=== PATIENT | male | born 1950 | race Caucasian/White ===

== ENCOUNTER 2018-08-13 00:05 | Inpatient (IN) | payer OTHER, MEDICARE ==
[~2018-08-13] VITALS: Ht 175.3 cm; Wt 100.1 kg
[~2018-08-13 00:05] MED LIST: ASPI-999 PO; ATOR40TA70 PO; CARV6.252 PO; INSU100I10 SQ; INSU100I23 SQ; INSU100V SQ; INSU100V6 SQ; ISOS30TA3 PO; LISI10TA2 PO; METF-399 PO; MULT-1029 PO; NITR0.4T39 SL; ROSU20TA PO
[2018-08-13] MEDS ORDERED: VANCOMYCIN INJECTION 1,000 MG in NS (IVPB) 250 ML IV ONE (22:15)
[2018-08-13] MEDS ORDERED: PIPERACILLIN SODIUM/TAZOBACTAM 4.5 GM in NS (IVPB) 100 ML IV SCH (22:15)
[2018-08-13] MEDS ORDERED: inSUlin ASPART (NovoLOG) 1 UNIT/0.01 ML (CHARGE PER UNIT) SC SCH (22:15)
--- NOTE | 2018-08-13 23:35 | NUR ---
Received report from ESTRELLA Rea at [facility] at [id number]. LÓPEZ RODRÍGUEZ admitted to room 417 , with an admitting diagnosis of cellulitis and diabetes mellitus , [facility] accompanied by staff and SO. LÓPEZ RODRÍGUEZ introduced to surroundings, call light, bed controls, phone, TV, temperature control, lights, meal times, smoking policy, visitor policy, side rail policy, bathrooms and showers. Patient Rights given to patient in the handbook. LÓPEZ RODRÍGUEZ verbalizes understanding that [facility] is not responsible for the loss or damage to any personal effects or valuables that are kept in the patients possession during their hospitalization. LÓPEZ RODRÍGUEZ verbalizes understanding of Interdisciplinary Patient Education. Patient and/or family were informed about the Rapid Response Team and its purpose.
[2018-08-13 23:40] VITALS: BP 144/74
[2018-08-14] VITALS: BP 144/74
[2018-08-14] MEDS: NS IV 1000 ML 1,000 ML IV SCH ×2 (01:15→09:35)
[2018-08-14] MEDS: ENOXAPARIN 40 MG/0.4 ML (LOVENOX) SYR SC SCH ×2 (01:16→21:50)
[2018-08-14 01:38] LABS: BASOPHILS % (AUTO) 0 % (0-10); EOSINOPHILS # (AUTO) 0.9 10^3/uL (0.0-0.3); EOSINOPHILS % (AUTO) 10 % (0-10); HEMATOCRIT 43 % (40-54); HEMOGLOBIN 15.8 G/DL (13.3-17.7); LYMPHOCYTES % (AUTO) 34 % (12-44); MEAN CORPUSCULAR HEMOGLOBIN 30 PG (25-34); MEAN CORPUSCULAR HGB CONC 36 G/DL (32-36); MEAN CORPUSCULAR VOLUME 82 FL (80-99); MEAN PLATELET VOLUME 9.2 FL (7.4-10.4); MONOCYTES # (AUTO) 0.8 X 10^3 (0.0-1.0); MONOCYTES % (AUTO) 9 % (0-12); NEUTROPHILS # (AUTO) 4.2 X 10^3 (1.8-7.8); NEUTROPHILS % (AUTO) 47 % (42-75); PLATELET COUNT 239 10^3/uL (130-400); RED BLOOD COUNT 5.28 10^6/uL (4.35-5.85); RED CELL DISTRIBUTION WIDTH 16.8 % (10.0-14.5); WHITE BLOOD COUNT 8.9 10^3/uL (4.3-11.0)
[2018-08-14 01:58] LABS: ALANINE AMINOTRANSFERASE 21 U/L (0-55); ALBUMIN 2.1 GM/DL (3.2-4.5); ALKALINE PHOSPHATASE 71 U/L (40-136); BILIRUBIN,TOTAL 0.4 MG/DL (0.1-1.0); BUN/CREATININE RATIO 17; CALCIUM 8.2 MG/DL (8.5-10.1); CARBON DIOXIDE 23 MMOL/L (21-32); CHLORIDE 105 MMOL/L (98-107); CREATININE SERUM 0.96 MG/DL (0.60-1.30); GFR ESTIMATED > 60; GLUCOSE 202 MG/DL (70-105); POTASSIUM 3.8 MMOL/L (3.6-5.0); SODIUM 137 MMOL/L (135-145); TOTAL PROTEIN 4.2 GM/DL (6.4-8.2)
[2018-08-14 04:48] VITALS: BP 129/60
[2018-08-14] MEDS: inSUlin ASPART (NovoLOG) 1 UNIT/0.01 ML (CHARGE PER UNIT) SC SCH ×4 (06:30→21:58)
[2018-08-14 08:00] VITALS: BP 124/66
[2018-08-14] MEDS: PIPERACILLIN SODIUM/TAZOBACTAM 4.5 GM in NS (IVPB) 100 ML IV SCH ×2 (09:36→18:16)
[2018-08-14] MEDS ORDERED: INSU100V SQ (11:24)
[2018-08-14] MEDS ORDERED: FURO20TA4 PO (11:25)
[2018-08-14] MEDS ORDERED: METF-399 PO (11:25)
[2018-08-14] MEDS ORDERED: POTA-51 PO (11:26)
[2018-08-14] MEDS ORDERED: PANT40TA2 PO (11:26)
--- NOTE | 2018-08-14 11:28 | NUR ---
SPOKE TO PATIENT HE GETS HIS MEDICATION FILLED BY [facility]. WHEN OVER MEDICATIONS WE HAD ON HIS CHART AND HE STATED IF HE TOOK THEM AND HOW HE TOOK THEM.
[2018-08-14 12:00] VITALS: BP 126/64
[2018-08-14] MEDS: VANCOMYCIN 1500 MG/NS 500 ML IVPB IV SCH ×4 (12:11→21:51)
[2018-08-14] MEDS ORDERED: NITROGLYCERIN 0.4 MG SL TABS BTL 25'S SL SCH (12:30)
--- NOTE | 2018-08-14 12:39 | History & Physical-Hospitalist ---
History of Present Illness HPI/Chief Complaint Is a 67-year-old white male transferred to the hospitalist service from the emergency room at [facility]. The concern by the nurse practitioner was that the patient had developed a cellulitis in his right lower extremity. He reports that over the past several weeks he has had increasing problems with edema both legs and the arms. He also states that at times he has trouble bending his knees. He attributes this to swelling as well. He has a past history of coronary artery bypass some 15 years ago. He has previously been treated in [place]. 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 He had an echocardiogram about 2 months ago which is not available to me. After prompting him it would sound that he had a normal ejection fraction but diastolic dysfunction. He has been taking Lasix 20 mg by mouth for several weeks. This has not been clearly helpful. He works in a sedentary fashion mostly at a desk. He states that his legs swell more as the day goes on. Date Seen 08/14/18 Time Seen by a Provider: 12:37 Attending Physician Edgar Alexander MD PCP No,Local Physician Referring Physician Date of Admission Aug 14, 2018 at 00:35 Home Medications & Allergies Home Medications Reviewed patient Home Medication Reconciliation performed by pharmacy medication reconciliations measurement technician and/or nursing. Patients Allergies have been reviewed. Allergies Allergies Coded Allergies No Known Drug Allergies (Unverified03/17/16) Past Wjuomgw-Agqmds-Xkcvdo Hx Past Med/Social Hx: Reviewed Nursing Past Med/Soc Hx Patient Social History Alcohol Use: Occasionally Uses Alcohol Beverage of Choice: Beer Recreational Drug Use: No Smoking Status: Former Smoker Former Smoker, Quit: Aug 14, 2004 Type Used: Cigarettes Physical Abuse Screen: No Sexual Abuse: No Recent Foreign Travel: No Contact w/other who traveled: No Recent Hopitalizations: No Recent Infectious Disease Expo: No Immunizations Up To Date Date of Pneumonia Vaccine: May 17, 2018 Date of Influenza Vaccine: May 17, 2018 Seasonal Allergies Seasonal Allergies: No Past Medical History Surgeries: CABG Currently Using CPAP: No Currently Using BIPAP: No Cardiac: Coronary Artery Disease, Heart Attack, High Cholesterol, Hypertension Reproductive: No Sexually Transmitted Disease: No HIV/AIDS: No Gastrointestinal: Gastroesophageal Reflux Endocrine: Diabetes, Insulin dep HEENT: Cataract Loss of Vision: Bilateral Hearing Impairment: Hard of Hearing History of Blood Disorders: No Adverse Reaction to Blood Hankins: No Family History Diabetes mellitus 19 MOTHER FH: breast cancer 19 MOTHER FH: cancer 19 FATHER 19 MOTHER FH: heart disease 19 FATHER 19 MOTHER No Pertinent Family Hx Review of Systems Constitutional: see HPI EENTM: no symptoms reported Respiratory: dyspnea on exertion Cardiovascular: other (extensive past history with previous bypass surgery.) Gastrointestinal: no symptoms reported Genitourinary: no symptoms reported Musculoskeletal: no symptoms reported Skin: change in color (both lower extremities below the knees) Psychiatric/Neurological: No Symptoms Reported Physical Exam Physical Exam Vital Signs Vital Signs - First Documented 08/13/18 23:40 Temp 98.0 Pulse 79 Resp 20 B/P (MAP) 144/74 (97) Pulse Ox 98 O2 Delivery Room Air Capillary Refill : Height, Weight, BMI Height: 5'9.00" Weight: 220lbs. 11.0oz. 100.921092pi; 32.6 BMI Method:Unable to Obtain General Appearance: No Apparent Distress, WD/WN Eyes: Bilateral Eye Normal Inspection HEENT: Normal ENT Inspection Neck: Normal Inspection Respiratory: Chest Non Tender, Lungs Clear, Normal Breath Sounds, No Accessory Muscle Use, No Respiratory Distress Cardiovascular: Regular Rate, Rhythm, No Edema, No Gallop, No JVD, No Murmur, Normal Peripheral Pulses Gastrointestinal: Normal Bowel Sounds, No Organomegaly, No Pulsatile Mass, Non Tender, Soft, Other (obese) Back: Normal Inspection Comments The lower extremities show 2-3+ pitting edema pretibially. There is mild discoloration bilaterally and palpable papillary keratoses consistent with venous stasis dermatitis. No evidence of cellulitis is noted. There is palpable edema to the upper thighs. In addition there is edema in the upper extremities with dorsal edema and pitting of the hands left greater than right. Results Results/Procedures Labs Laboratory Tests 08/14/18 01:17 08/15/18 10:20 Patient resulted labs reviewed. Assessment/Plan Admission Diagnosis Anasarca, consider undiagnosed congestive heart failure. 2.previous history coronary artery disease post-bypass surgery. 3.hypertension. Admission Status: Inpatient Order (span 2 midnights) Reason for Inpatient Admission: Edema requiring longer than 48 hours Assessment and Plan Cardiology consultation. Discontinuation of IV antibiotics. Echocardiogram Clinical Quality Measures DVT/VTE Risk/Contraindication: Risk Factor Score Per Nursin RFS Level Per Nursing on Admit: 4+=Very High EDGAR ALEXANDER MD Aug 14, 2018 12:39
[2018-08-14] MEDS ORDERED: FUROSEMIDE 40 MG/4 ML INJ (LASIX) IVP ONE (12:45)
[2018-08-14 16:00] VITALS: BP 153/70
[2018-08-14] MEDS ORDERED: FUROSEMIDE 40 MG/4 ML INJ (LASIX) ONE (16:16)
[2018-08-14] MEDS: metFORMIN 500 MG (GLUCOPHAGE) TAB PO SCH (18:15)
[2018-08-14] MEDS: inSUlin ASPART (NovoLOG) 1 UNIT/0.01 ML (CHARGE PER UNIT) SQ SCH (18:16)
--- NOTE | 2018-08-14 18:42 | NUR ---
Home dose of Novolog refused by patient stating that he is watching his carbohydrates during this admission and his blood sugar is much lower than it normally is at home, Per previous SSI protocol he has not been receiving insulin. Will discuss insulin orders with provider.
[2018-08-14 20:00] VITALS: BP 135/61
[2018-08-14] MEDS: inSUlin DETERMIR 1 UNIT/0.01 ML (LEVEMIR) CHARGE PER UNIT SQ SCH (21:50)
[2018-08-14] MEDS: KCL 20 MEQ TAB (K-DUR) PO SCH (21:50)
[2018-08-14] MEDS: CARVEDILOL 6.25 MG (COREG) TAB PO SCH (21:51)
[2018-08-14] MEDS ORDERED: VANCOMYCIN INJECTION 0.1 MG in NS (IVPB) 250 ML IV SCH (22:00)
[2018-08-15] VITALS: BP 114/61
[2018-08-15] MEDS: PIPERACILLIN SODIUM/TAZOBACTAM 4.5 GM in NS (IVPB) 100 ML IV SCH ×2 (02:24→10:48)
[2018-08-15 04:00] VITALS: BP 114/53
[2018-08-15] MEDS: inSUlin ASPART (NovoLOG) 1 UNIT/0.01 ML (CHARGE PER UNIT) SQ SCH ×3 (05:07→16:12)
[2018-08-15] MEDS: inSUlin ASPART (NovoLOG) 1 UNIT/0.01 ML (CHARGE PER UNIT) SC SCH ×4 (06:19→21:10)
[2018-08-15] MEDS: metFORMIN 500 MG (GLUCOPHAGE) TAB PO SCH ×2 (06:30→16:09)
[2018-08-15 08:00] VITALS: BP 138/68
[2018-08-15] MEDS: ASPIRIN 81 MG CHEW (CHILDREN'S ASA) PO SCH (08:46)
[2018-08-15] MEDS: KCL 20 MEQ TAB (K-DUR) PO SCH ×2 (08:46→21:09)
[2018-08-15] MEDS: VANCOMYCIN 1500 MG/NS 500 ML IVPB IV SCH ×4 (08:46→21:09)
[2018-08-15] MEDS: lisINopril 10 MG (PRINIVIL) TABLET PO SCH (08:46)
[2018-08-15] MEDS: CARVEDILOL 6.25 MG (COREG) TAB PO SCH ×2 (08:46→21:23)
[2018-08-15] MEDS: PANTOPRAZOLE 40 MG (PROTONIX) TAB PO SCH (08:46)
[2018-08-15] MEDS: ATORVASTATIN 40 MG (LIPITOR) TABLET PO SCH (08:46)
--- NOTE | 2018-08-15 10:03 | Consultation-Cardiology ---
HPI-Cardiology Cardiology Consultation Date of Consultation 08/15/18 Date of Admission Time Seen by Provider: 10:00 Indication: shortness of breath HPI 67 years old gentleman with history of coronary artery disease, CABG, hypertension and hyperlipidemia. Has been having increasing shortness of breath with exertion, increasing peripheral edema which has been worsening to the point that he went to the emergency room for evaluation, he was transferred from [place]. Upper my evaluation he was laying down in bed comfortably, having significant edema. Concerned about his increasing shortness of breath that has been occurring over the past month. Denied any palpitation. Denied any syncope or near syncopal episodes, denied any chest pain. Home Medications & Allergies Allergies: Coded Allergies: No Known Drug Allergies (Unverified , 03/17/16) Home Medication List Reviewed: Yes FBM-Csctuo-Epmhnf Hx Patient Social History Marital Status: Employed/Student: employed Alcohol Use: Occasionally Uses Recreational Drug Use: No Smoking Status: Former Smoker Type Used: Cigarettes Recent Foreign Travel: No Recent Infectious Disease Expo: No Recent Hopitalizations: No Physical Abuse Screen: No Sexual Abuse: No Immunizations Up To Date Date of Pneumonia Vaccine: May 17, 2018 Date of Influenza Vaccine: May 17, 2018 Past Medical History past medical history as described below Family Medical History Significant Family History: No Pertinent Family Hx Family History: Diabetes mellitus 19 MOTHER FH: breast cancer 19 MOTHER FH: cancer 19 FATHER 19 MOTHER FH: heart disease 19 FATHER 19 MOTHER Review of Systems Constitutional: see HPI, malaise EENTM: see HPI, no symptoms reported Respiratory: see HPI; No cough; dyspnea on exertion; No hemoptysis, No orthopnea, No phlegm, No short of breath, No stridor, No wheezing, No other Cardiovascular: see HPI; No chest pain; edema; No Hx of Intervention, No palpitations, No syncope, No vascular heart diseas, No other Gastrointestinal: no symptoms reported, see HPI Genitourinary: no symptoms reported, see HPI Musculoskeletal: no symptoms reported, see HPI Skin: no symptoms reported, see HPI Psychiatric/Neurological: No Symptoms Reported, See HPI Reviewed Test Results Reviewed Test Results Lab Laboratory Tests Test 08/14/18 11:03 08/14/18 12:41 08/14/18 16:05 08/14/18 20:22 Range/Units Glucometer 144 H 134 H 167 H 200 H 70-110 MG/DL Test 08/15/18 06:13 Range/Units Glucometer 77 70-110 MG/DL Physical Exam Vital Signs Vital Signs - First Documented 08/13/18 23:40 Temp 98.0 Pulse 79 Resp 20 B/P (MAP) 144/74 (97) Pulse Ox 98 O2 Delivery Room Air Capillary Refill : Height, Weight, BMI Height: 5'9.00" Weight: 220lbs. 11.0oz. 100.572323uh; 32.6 BMI Method:Unable to Obtain General Appearance: No Apparent Distress, WD/WN Eyes: Bilateral Eye Normal Inspection, Bilateral Eye PERRL, Bilateral Eye EOMI HEENT: PERRL/EOMI, TMs Normal, Normal ENT Inspection, Pharynx Normal Neck: Full Range of Motion, Normal Inspection, Non Tender, Supple, Carotid Bruit, JVD Respiratory: Chest Non Tender, Lungs Clear, Normal Breath Sounds, No Accessory Muscle Use, No Respiratory Distress Cardiovascular: Regular Rate, Rhythm, No Edema, No Gallop, No Murmur, Normal Peripheral Pulses, JVD Gastrointestinal: Normal Bowel Sounds, No Organomegaly, No Pulsatile Mass, Non Tender, Soft Back: Normal Inspection, No CVA Tenderness, No Vertebral Tenderness Extremity: Normal Capillary Refill, Normal Inspection, Normal Range of Motion, Non Tender, No Calf Tenderness, Pedal Edema (+2-3 pedal edema) Neurologic/Psychiatric: Alert, Oriented x3, No Motor/Sensory Deficits, Normal Mood/Affect Skin: Normal Color, Warm/Dry Lymphatic: No Adenopathy A/P-Cardiology Admission Diagnosis Shortness of breath Peripheral edema Coronary artery disease Peripheral arterial disease Hypertension Hyperlipidemia Assessment/Plan Shortness of breath, worsening recently. Extensive cardiac history, planning to evaluate echocardiogram. Started on Lasix IV Peripheral edema involving the lower and upper extremities with jugular venous distention. Started on Lasix 40 mg IV twice a day and we will monitor tolerance and response. Coronary artery disease, history of CABG 3 done in 2003, cardiac catheterization done in March 2016 showed patent AMBROSIO to LAD, vein graft to the ramus intermedius which has diffuse disease distally, patent vein graft to the right coronary artery which has diffuse disease distally, the first diagonal branch has severe disease at its ostium which is a small artery not amendable to intervention, the proper circumflex artery and first obtuse marginal branch has diffuse disease and receiving collaterals from the right coronary artery, small artery not amendable to intervention. Has been followed with a program specialist in [place], currently moving back to our area. Next Peripheral arterial disease, history of iliac stent. No recent cardiac workup or vascular workup. Currently asymptomatic. Hypertension, restarted home medication monitor blood pressure Hyperlipidemia, monitor lipids. Diabetes mellitus, followed and managed by primary care physician Clinical Quality Measures DVT/VTE Risk/Contraindication: Risk Factor Score Per Nursin RFS Level Per Nursing on Admit: 4+=Very High ELMIRA KIM MD Aug 15, 2018 10:03
--- NOTE | 2018-08-15 10:12 | Diagnostic Imaging Report ---
PROCEDURE: US Venous Lower Ext Jaxon. TECHNIQUE: Multiple real-time grayscale images were obtained over the lower extremities in various projections, bilaterally. Additional duplex Doppler and color Doppler images were also obtained. DATE: August 15, 2018. INDICATION: 67-year-old male, bilateral lower extremity swelling. COMPARISON: None. FINDINGS: The left common femoral vein, left superficial femoral vein, and left popliteal vein are all compressible with normal flow and response to augmentation. Visualized portions of the left greater saphenous vein and deep femoral vein are patent. The left posterior tibial vein and peroneal veins are patent. The right common femoral vein, superficial femoral vein, and popliteal vein are compressible with normal flow and response to augmentation. The visualized portions of the right greater saphenous vein and deep femoral vein are patent. The right posterior tibial and peroneal veins are patent. IMPRESSION: 1. Negative for right or left lower extremity deep venous thrombosis. Dictated by: Dictated on workstation # [id number]
[2018-08-15] MEDS: FUROSEMIDE 40 MG/4 ML INJ (LASIX) IVP SCH ×2 (10:48→16:09)
[2018-08-15 10:50] LABS: BUN/CREATININE RATIO 15; CALCIUM 7.6 MG/DL (8.5-10.1); CARBON DIOXIDE 23 MMOL/L (21-32); CHLORIDE 109 MMOL/L (98-107); CREATININE SERUM 1.08 MG/DL (0.60-1.30); GFR ESTIMATED > 60; GLUCOSE 110 MG/DL (70-105); MAGNESIUM 1.4 MG/DL (1.8-2.4); POTASSIUM 3.9 MMOL/L (3.6-5.0); SODIUM 140 MMOL/L (135-145)
[2018-08-15 12:00] VITALS: BP 133/62
[2018-08-15] MEDS: MAGNESIUM 1 GM/100 ML IVPB 100 ML IV SCH ×3 (12:18→14:36)
--- NOTE | 2018-08-15 13:01 | Diagnostic Imaging Report ---
INDICATION: Anasarca. Cellulitis of the right foot. FINDINGS: Portable chest shows normal heart size and vascularity. The lungs are clear. There are changes of prior median sternotomy. There is no acute bony abnormality. IMPRESSION: No acute abnormality is seen. Dictated by: Dictated on workstation # [id number]
--- NOTE | 2018-08-15 14:59 | Progress Note-Hospitalist ---
Progress Note Progress Notes/Assess & Plan Date Seen 08/15/18 Time Seen by Provider: 14:56 Assessment & Plan The patient reports that after Lasix he has urinated robustly. Dr. Morgan has filled in some blanks relative to the cardiac function. An echocardiogram has been performed and shows diastolic dysfunction. In addition his estimated pulmonary artery pressure is 35 mmHg. Physical exam: He is alert and oriented. Lungs are clear to auscultation. CV is regular without murmur. The extremities show resolution of the dorsal edema in the hands. The ankles now are rated at 1+ edema with minimum pitting. In addition the skin up the legs does not feel as thick and doughy as it did yesterday. Impression: Diastolic dysfunction. 2.hypertension. 3.generalized edema. Plan: Continue aggressive diuresis. Focused Exam Lactate Level 08/14/18 01:17: Lactic Acid Level 1.27 ALONZO ALEXANDER MD Aug 15, 2018 14:59
[2018-08-15 16:10] VITALS: BP 125/58
[2018-08-15 19:25] VITALS: BP 108/57
[2018-08-15] MEDS: inSUlin DETERMIR 1 UNIT/0.01 ML (LEVEMIR) CHARGE PER UNIT SQ SCH (21:09)
[2018-08-15] MEDS: ENOXAPARIN 40 MG/0.4 ML (LOVENOX) SYR SC SCH (23:47)
[2018-08-16] VITALS: BP 106/51
[2018-08-16] MEDS ORDERED: DEXTROSE 50% 50 ML (IMS) SYR ONE (02:24)
[2018-08-16 04:00] VITALS: BP 100/57
[2018-08-16] MEDS: inSUlin ASPART (NovoLOG) 1 UNIT/0.01 ML (CHARGE PER UNIT) SQ SCH ×3 (06:58→17:09)
[2018-08-16] MEDS: metFORMIN 500 MG (GLUCOPHAGE) TAB PO SCH (06:58)
[2018-08-16] MEDS: inSUlin ASPART (NovoLOG) 1 UNIT/0.01 ML (CHARGE PER UNIT) SC SCH ×4 (06:58→21:33)
[2018-08-16] MEDS: FUROSEMIDE 40 MG/4 ML INJ (LASIX) IVP SCH (06:58)
[2018-08-16 08:00] VITALS: BP 136/72
[2018-08-16] MEDS ORDERED: TROUGH ORDER-PHARMACY XX NR (08:00)
--- NOTE | 2018-08-16 08:53 | Cardiology Progress Note ---
Subjective Date Seen by Provider: Aug 16, 2018 Time Seen by Provider: 08:51 Subjective/Events-last exam Patient is in bed, continues to complain of dyspnea with exertion. Denies any chest pain. Focused Exam Lactate Level 08/14/18 01:17: Lactic Acid Level 1.27 Objective-Cardiology Exam Last Set of Vital Signs Vital Signs 08/16/18 04:00 Temp 97.4 Pulse 63 Resp 18 B/P (MAP) 100/57 (71) Pulse Ox 93 O2 Delivery Room Air Capillary Refill : I&O Intake and Output 08/16/18 00:00 Intake Total 3340 ml Output Total 2750 ml Balance 590 ml Intake Oral 1910 ml IV Total 1430 ml Output Urine Total 2750 ml # Bowel Movements 2 General: Alert, Oriented X3, Cooperative HEENT: Atraumatic, PERRLA Neck: Supple, No JVD, No Thyromegaly Lungs: Clear to Auscultation, Normal Air Movement Heart: Regular Rate, Normal S1, Normal S2, No Murmurs Abdomen: Soft, No Tenderness Extremities: Normal Pulses, Other (+2-3 edema BLE) Skin: No Rashes, No Breakdown Neuro: Normal Speech Psych/Mental Status: Mental Status NL, Mood NL Results Lab Laboratory Tests 08/15/18 10:20 A/P-Cardiology Admission Diagnosis Shortness of breath Peripheral edema Coronary artery disease Peripheral arterial disease Hypertension Hyperlipidemia Assessment/Plan Shortness of breath, worsening recently. Extensive cardiac history, Started on Lasix IV. 2D Echo revealed EF 55-60%. Peripheral edema involving the lower and upper extremities with jugular venous distention. Started on Lasix 40 mg IV twice a day and we will monitor tolerance and response. Coronary artery disease, history of CABG 3 done in 2003, cardiac catheterization done in March 2016 showed patent AMBROSIO to LAD, vein graft to the ramus intermedius which has diffuse disease distally, patent vein graft to the right coronary artery which has diffuse disease distally, the first diagonal branch has severe disease at its ostium which is a small artery not amendable to intervention, the proper circumflex artery and first obtuse marginal branch has diffuse disease and receiving collaterals from the right coronary artery, small artery not amendable to intervention. Has been followed with a pot feeder in [place], currently moving back to our area. Discussed the possibility of stress test in the near future. Peripheral arterial disease, history of iliac stent. No recent cardiac workup or vascular workup. Currently asymptomatic. Hypertension, continue to monitor blood pressure. Hyperlipidemia, monitor lipids. Diabetes mellitus, followed and managed by primary care physician Clinical Quality Measures DVT/VTE Risk/Contraindication: Risk Factor Score Per Nursin RFS Level Per Nursing on Admit: 4+=Very High HAJA MAYNARD Aug 16, 2018 08:53
[2018-08-16 09:01] LABS: HEMOGLOBIN 15.2 G/DL (13.3-17.7); MEAN PLATELET VOLUME 9.2 FL (7.4-10.4); RED BLOOD COUNT 5.03 10^6/uL (4.35-5.85); RED CELL DISTRIBUTION WIDTH 17.3 % (10.0-14.5); WHITE BLOOD COUNT 9.3 10^3/uL (4.3-11.0)
[2018-08-16] MEDS: CARVEDILOL 6.25 MG (COREG) TAB PO SCH ×2 (09:15→20:14)
[2018-08-16] MEDS: lisINopril 10 MG (PRINIVIL) TABLET PO SCH (09:15)
[2018-08-16] MEDS: PANTOPRAZOLE 40 MG (PROTONIX) TAB PO SCH (09:15)
[2018-08-16] MEDS: KCL 20 MEQ TAB (K-DUR) PO SCH ×2 (09:16→20:14)
[2018-08-16] MEDS: ATORVASTATIN 40 MG (LIPITOR) TABLET PO SCH (09:16)
[2018-08-16] MEDS: ASPIRIN 81 MG CHEW (CHILDREN'S ASA) PO SCH ×2 (09:16→09:46)
[2018-08-16 09:27] LABS: ALBUMIN 2.1 GM/DL (3.2-4.5); BILIRUBIN,TOTAL 0.3 MG/DL (0.1-1.0); CALCIUM 8.3 MG/DL (8.5-10.1); CREATININE SERUM 2.08 MG/DL (0.60-1.30); POTASSIUM 4.4 MMOL/L (3.6-5.0); TOTAL PROTEIN 4.2 GM/DL (6.4-8.2)
--- NOTE | 2018-08-16 09:30 | Cardiology Progress Note ---
Subjective Date Seen by Provider: Aug 16, 2018 Time Seen by Provider: 09:28 Subjective/Events-last exam patient is laying down in bed, still having edema, denied any chest pain, mild dyspnea Review of Systems General: No Chills, No Night Sweats, No Fatigue, No Malaise, No Appetite, No Other HEENT: No Head Aches, No Visual Changes, No Eye Pain, No Ear Pain, No Dysphasia , No Sinus Congestion, No Post Nasal Drip, No Sore Throat, No Other Pulmonary: Dyspnea; No Cough, No Pleuritic Chest Pain, No Other Cardiovascular: Edema; No: Chest Pain, Palpitations, Orthopnea, Paroxysmal Noc. Dyspnea, Lt Headedness, Other Focused Exam Lactate Level 08/14/18 01:17: Lactic Acid Level 1.27 Objective-Cardiology Exam Last Set of Vital Signs Vital Signs 08/16/18 04:00 Temp 97.4 Pulse 63 Resp 18 B/P (MAP) 100/57 (71) Pulse Ox 93 O2 Delivery Room Air Capillary Refill : I&O Intake and Output 08/16/18 00:00 Intake Total 3340 ml Output Total 2750 ml Balance 590 ml Intake Oral 1910 ml IV Total 1430 ml Output Urine Total 2750 ml # Bowel Movements 2 General: Alert, Oriented X3, Cooperative HEENT: Atraumatic, PERRLA Neck: Supple, No JVD, No Thyromegaly Lungs: Clear to Auscultation, Normal Air Movement Heart: Regular Rate, Normal S1, Normal S2, No Murmurs Abdomen: Soft, No Tenderness Extremities: Normal Pulses, Other (+2-3 edema BLE) Skin: No Rashes, No Breakdown Neuro: Normal Speech Psych/Mental Status: Mental Status NL, Mood NL Results Lab Laboratory Tests 08/15/18 10:20 08/16/18 08:35 A/P-Cardiology Admission Diagnosis Shortness of breath Peripheral edema Coronary artery disease Peripheral arterial disease Hypertension Hyperlipidemia Assessment/Plan Shortness of breath, worsening recently. Extensive cardiac history, Started on Lasix IV. 2D Echo revealed EF 55-60%, diastolic dysfunction, continue to monitor Acute renal failure, worsening in renal function secondary to aggressive diuresis, I would hold the evening dose of Lasix for now and monitor tolerance and response Peripheral edema involving the lower and upper extremities with jugular venous distention. Started on Lasix 40 mg IV twice a day, hold the evening dose of Lasix due to worsening renal function Coronary artery disease, history of CABG 3 done in 2003, cardiac catheterization done in March 2016 showed patent AMBROSIO to LAD, vein graft to the ramus intermedius which has diffuse disease distally, patent vein graft to the right coronary artery which has diffuse disease distally, the first diagonal branch has severe disease at its ostium which is a small artery not amendable to intervention, the proper circumflex artery and first obtuse marginal branch has diffuse disease and receiving collaterals from the right coronary artery, small artery not amendable to intervention. Has been followed with a siebel solution architect in [place], currently moving back to our area. Discussed the possibility of stress test in the near future. Peripheral arterial disease, history of iliac stent. No recent cardiac workup or vascular workup. Currently asymptomatic. Hypertension, continue to monitor blood pressure. Hyperlipidemia, monitor lipids. Diabetes mellitus, followed and managed by primary care physician Clinical Quality Measures DVT/VTE Risk/Contraindication: Risk Factor Score Per Nursin RFS Level Per Nursing on Admit: 4+=Very High ELMIRA KIM MD Aug 16, 2018 09:30
--- NOTE | 2018-08-16 09:34 | Progress Note-Hospitalist ---
Subjective HPI/CC On Admission Date Seen by Provider: Aug 16, 2018 Time Seen by Provider: 09:28 Is a 67-year-old white male transferred to the hospitalist service from the emergency room at [facility]. The concern by the nurse practitioner was that the patient had developed a cellulitis in his right lower extremity. He reports that over the past several weeks he has had increasing problems with edema both legs and the arms. He also states that at times he has trouble bending his knees. He attributes this to swelling as well. He has a past history of coronary artery bypass some 15 years ago. He has previously been treated in [place]. 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 He had an echocardiogram about 2 months ago which is not available to me. After prompting him it would sound that he had a normal ejection fraction but diastolic dysfunction. He has been taking Lasix 20 mg by mouth for several weeks. This has not been clearly helpful. He works in a sedentary fashion mostly at a desk. He states that his legs swell more as the day goes on. Subjective/Events-last exam Pt reports feeling better but still dyspneic with ambulation. Still has pitting edema as well. Focused Exam Lactate Level Objective Exam Vital Signs Vital Signs Date Time Temp Pulse Resp B/P (MAP) Pulse Ox O2 Delivery O2 Flow Rate FiO2 08/17/18 08:55 97.4 69 20 116/65 (82) 93 Room Air Capillary Refill : General Appearance: No Apparent Distress, WD/WN Respiratory: Lungs Clear, No Respiratory Distress Cardiovascular: Regular Rate, Rhythm, No Murmur Extremity: Swelling (1-2+ pitting edema to bilateral lower extremities, upper extremity non pitting edema noted) Neurologic/Psychiatric: Alert, Oriented x3 Results/Procedures Lab Laboratory Tests 08/17/18 06:05 Patient resulted labs reviewed. Assessment/Plan Assessment and Plan Assess & Plan/Chief Complaint Acutely decompensated diastolic heart failure Diagnosis/Problems Diagnosis/Problems (1) Heart failure Status: Acute Assessment & Plan: Continue on IV lasix for diuresis Hold evening dose Cardiology consulted, appreciate recs Qualifiers: Heart failure type: diastolic Heart failure chronicity: acute Qualified Codes: I50.31 - Acute diastolic (congestive) heart failure (2) INGRID (acute kidney injury) Status: Acute Assessment & Plan: Likely due to diuresis Hold evening Lasix (3) Diabetes mellitus Status: Acute Assessment & Plan: Continue home insulin Hold metformin Qualifiers: Diabetes mellitus type: type 2 Diabetes mellitus terminal block assembler insulin use: with terminal block assembler use Diabetes mellitus complication status: without complication Qualified Codes: E11.9 - Type 2 diabetes mellitus without complications; Z79.4 - shelter (current) use of insulin (4) CAD (coronary artery disease) Status: Chronic Assessment & Plan: Extensive history Cardiology consulted, appreciate recs Qualifiers: Coronary Disease-Associated Artery/Lesion type: [place] artery [place] vs. transplanted heart: [place] heart Associated angina: without angina Qualified Codes: I25.10 - Atherosclerotic heart disease of [place] coronary artery without angina pectoris (5) Essential (primary) hypertension Assessment & Plan: BP low to normotensive Trend Clinical Quality Measures DVT/VTE Risk/Contraindication: Risk Factor Score Per Nursin RFS Level Per Nursing on Admit: 4+=Very High BOBBY PHELAN MD Aug 16, 2018 09:34
[2018-08-16 16:10] VITALS: BP 113/55
[2018-08-16] MEDS: inSUlin DETERMIR 1 UNIT/0.01 ML (LEVEMIR) CHARGE PER UNIT SQ SCH (21:53)
[2018-08-16] MEDS: ENOXAPARIN 40 MG/0.4 ML (LOVENOX) SYR SC SCH (21:53)
[2018-08-17] VITALS: BP 102/59
[2018-08-17] MEDS: inSUlin ASPART (NovoLOG) 1 UNIT/0.01 ML (CHARGE PER UNIT) SC SCH ×4 (06:02→21:50)
[2018-08-17] MEDS: inSUlin ASPART (NovoLOG) 1 UNIT/0.01 ML (CHARGE PER UNIT) SQ SCH (06:02)
[2018-08-17 06:18] LABS: HEMOGLOBIN 13.3 G/DL (13.3-17.7); MEAN PLATELET VOLUME 9.2 FL (7.4-10.4); RED BLOOD COUNT 4.5 10^6/uL (4.35-5.85); RED CELL DISTRIBUTION WIDTH 16.5 % (10.0-14.5)
[2018-08-17 06:37] LABS: CALCIUM 7.7 MG/DL (8.5-10.1); CREATININE SERUM 3.5 MG/DL (0.60-1.30); MAGNESIUM 1.8 MG/DL (1.8-2.4); POTASSIUM 4.3 MMOL/L (3.6-5.0)
[2018-08-17 08:55] VITALS: BP 116/65
[2018-08-17] MEDS: CARVEDILOL 6.25 MG (COREG) TAB PO SCH ×2 (09:03→21:22)
[2018-08-17] MEDS: NS IV 1000 ML 1,000 ML IV SCH ×3 (09:03→21:22)
[2018-08-17] MEDS: KCL 20 MEQ TAB (K-DUR) PO SCH ×2 (09:03→21:22)
[2018-08-17] MEDS: ATORVASTATIN 40 MG (LIPITOR) TABLET PO SCH (09:04)
[2018-08-17] MEDS: PANTOPRAZOLE 40 MG (PROTONIX) TAB PO SCH (09:04)
[2018-08-17] MEDS: ASPIRIN 81 MG CHEW (CHILDREN'S ASA) PO SCH (09:05)
--- NOTE | 2018-08-17 09:43 | Progress Note-Hospitalist ---
Subjective HPI/CC On Admission Date Seen by Provider: Aug 17, 2018 Time Seen by Provider: 09:39 Is a 67-year-old white male transferred to the hospitalist service from the emergency room at [facility]. The concern by the nurse practitioner was that the patient had developed a cellulitis in his right lower extremity. He reports that over the past several weeks he has had increasing problems with edema both legs and the arms. He also states that at times he has trouble bending his knees. He attributes this to swelling as well. He has a past history of coronary artery bypass some 15 years ago. He has previously been treated in [place]. 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 He had an echocardiogram about 2 months ago which is not available to me. After prompting him it would sound that he had a normal ejection fraction but diastolic dysfunction. He has been taking Lasix 20 mg by mouth for several weeks. This has not been clearly helpful. He works in a sedentary fashion mostly at a desk. He states that his legs swell more as the day goes on. Subjective/Events-last exam Pt reports feeling better but swelling persistent. Discussed elevated creatinine and need for IVF and renal referral as an outpatient. Objective Exam Vital Signs Vital Signs Date Time Temp Pulse Resp B/P (MAP) Pulse Ox O2 Delivery O2 Flow Rate FiO2 08/17/18 08:55 97.4 69 20 116/65 (82) 93 Room Air Capillary Refill : General Appearance: No Apparent Distress, WD/WN Respiratory: Lungs Clear, No Respiratory Distress Cardiovascular: Regular Rate, Rhythm, No Murmur Gastrointestinal: Normal Bowel Sounds, Soft Extremity: No Calf Tenderness, No Pedal Edema Neurologic/Psychiatric: Alert, Oriented x3 Results/Procedures Lab Laboratory Tests 08/17/18 06:05 Patient resulted labs reviewed. Assessment/Plan Assessment and Plan Assess & Plan/Chief Complaint Acutely decompensated diastolic heart failure Diagnosis/Problems Diagnosis/Problems (1) INGRID (acute kidney injury) Status: Acute Assessment & Plan: Worsening today Lisinopril held, lasix held IVF started Trend Will get UA (2) Heart failure Status: Acute Assessment & Plan: Hold Lasix due to renal function Cardiology consulted, appreciate recs Qualifiers: Heart failure type: diastolic Heart failure chronicity: acute Qualified Codes: I50.31 - Acute diastolic (congestive) heart failure (3) Diabetes mellitus Status: Acute Assessment & Plan: Continue basal insulin at lower dose and SSI having hypoglycemia episodes so will hold scheduled prandial insulin Hold metformin Qualifiers: Diabetes mellitus type: type 2 Diabetes mellitus detention insulin use: with terminal press operator use Diabetes mellitus complication status: without complication Qualified Codes: E11.9 - Type 2 diabetes mellitus without complications; Z79.4 - terminal press operator (current) use of insulin (4) CAD (coronary artery disease) Status: Chronic Assessment & Plan: Extensive history Cardiology consulted, appreciate recs Qualifiers: Coronary Disease-Associated Artery/Lesion type: [place] artery [place] vs. transplanted heart: [place] heart Associated angina: without angina Qualified Codes: I25.10 - Atherosclerotic heart disease of [place] coronary artery without angina pectoris (5) Essential (primary) hypertension Assessment & Plan: BP low to normotensive Trend Clinical Quality Measures DVT/VTE Risk/Contraindication: Risk Factor Score Per Nursin RFS Level Per Nursing on Admit: 4+=Very High BOBBY PHELAN MD Aug 17, 2018 09:43
--- NOTE | 2018-08-17 09:51 | Cardiology Progress Note ---
Subjective Date Seen by Provider: Aug 17, 2018 Time Seen by Provider: 09:50 Subjective/Events-last exam patient is laying down in bed, no new complaint. Had worsening in his renal function Review of Systems General: No Chills, No Night Sweats, No Fatigue, No Malaise, No Appetite, No Other HEENT: No Head Aches, No Visual Changes, No Eye Pain, No Ear Pain, No Dysphasia , No Sinus Congestion, No Post Nasal Drip, No Sore Throat, No Other Pulmonary: No Dyspnea, No Cough, No Pleuritic Chest Pain, No Other Cardiovascular: No: Chest Pain, Palpitations, Orthopnea, Paroxysmal Noc. Dyspnea, Edema, Lt Headedness, Other Objective-Cardiology Exam Last Set of Vital Signs Vital Signs 08/17/18 08:55 Temp 97.4 Pulse 69 Resp 20 B/P (MAP) 116/65 (82) Pulse Ox 93 O2 Delivery Room Air Capillary Refill : I&O Intake and Output 08/17/18 00:00 Intake Total 1720 ml Output Total 1040 ml Balance 680 ml Intake Oral 1720 ml Output Urine Total 1040 ml # Voids 2 # Bowel Movements 2 General: Alert, Oriented X3, Cooperative HEENT: Atraumatic, PERRLA Neck: Supple, No JVD, No Thyromegaly Lungs: Clear to Auscultation, Normal Air Movement Heart: Regular Rate, Normal S1, Normal S2, No Murmurs Abdomen: Soft, No Tenderness Extremities: Normal Pulses, Other (+2-3 edema BLE) Skin: No Rashes, No Breakdown Neuro: Normal Speech Psych/Mental Status: Mental Status NL, Mood NL Results Lab Laboratory Tests 08/17/18 06:05 A/P-Cardiology Admission Diagnosis Shortness of breath Peripheral edema Coronary artery disease Peripheral arterial disease Hypertension Hyperlipidemia Assessment/Plan Shortness of breath, worsening recently. echo showed normal LV function with diastolic dysfunction. Continue to monitor Acute renal failure, worsening in renal function secondary to aggressive diuresis, . Lasix and lisinopril, start IV fluid and monitor. Peripheral edema involving the lower and upper extremities with jugular venous distention. Coronary artery disease, history of CABG 3 done in 2003, cardiac catheterization done in March 2016 showed patent AMBROSIO to LAD, vein graft to the ramus intermedius which has diffuse disease distally, patent vein graft to the right coronary artery which has diffuse disease distally, the first diagonal branch has severe disease at its ostium which is a small artery not amendable to intervention, the proper circumflex artery and first obtuse marginal branch has diffuse disease and receiving collaterals from the right coronary artery, small artery not amendable to intervention. Has been followed with a financial management in [place], currently moving back to our area. Discussed the possibility of stress test in the near future. Peripheral arterial disease, history of iliac stent. No recent cardiac workup or vascular workup. Currently asymptomatic. Hypertension, continue to monitor blood pressure. Hyperlipidemia, monitor lipids. Diabetes mellitus, followed and managed by primary care physician Clinical Quality Measures DVT/VTE Risk/Contraindication: Risk Factor Score Per Nursin RFS Level Per Nursing on Admit: 4+=Very High ELMIRA KIM MD Aug 17, 2018 09:51
[2018-08-17 15:41] VITALS: BP 111/53
--- NOTE | 2018-08-17 17:49 | NUR ---
HAS NOT URINATED SINCE VOIDING 300 THIS AM, DENIES NEED TO URINATION, BLADDER SCAN DONE, 260ML URINE IN BLADDER
--- NOTE | 2018-08-17 20:18 | NUR ---
PT COMPLAINING OF NAUSEA ON ASSESSMENT. DR. ALEXANDER CALLED TO INFORM HIM OF PTS CONDITION. TELEPHONE ORDERS RECEIVED FOR ZOFRAN 8MG IV [id number].
[2018-08-17 20:43] LABS: CLARITY,URINE CLEAR; COLOR,URINE YELLOW; GLUCOSE, URINE (UA) NEGATIVE (NEGATIVE); KETONES,URINE NEGATIVE (NEGATIVE); LEUKOCYTE ESTERASE ,URINE NEGATIVE (NEGATIVE); NITRITE,URINE NEGATIVE (NEGATIVE); PH,URINE 5 (5-9); PROTEIN,URINE 4+ (NEGATIVE); UROBILINOGEN,URINE NORMAL (NORMAL)
[2018-08-17 20:49] LABS: BACTERIA,URINE NEGATIVE /HPF; BILIRUBIN,URINE 1+ (NEGATIVE); RBC,URINE 0-2 /HPF
[2018-08-17] MEDS ORDERED: ENOXAPARIN 30 MG/0.3 ML (LOVENOX) SYR SC SCH (21:00)
[2018-08-17] MEDS: ONDANSETRON 4 MG/2 ML (SDV) Z0FRAN IVP PRN (21:21)
[2018-08-17] MEDS: inSUlin DETERMIR 1 UNIT/0.01 ML (LEVEMIR) CHARGE PER UNIT SQ SCH (21:50)
--- NOTE | 2018-08-17 22:00 | NUR ---
WENT IN TO GIVE PT MEDICATIONS AND PT STATED HE DID NOT EAT DINNER. PT REFUSED HIS 35 UNITS OF LEVEMIR.
[2018-08-18] VITALS: BP 144/52
[2018-08-18] MEDS: ONDANSETRON 4 MG/2 ML (SDV) Z0FRAN IVP PRN (06:25)
[2018-08-18] MEDS: inSUlin ASPART (NovoLOG) 1 UNIT/0.01 ML (CHARGE PER UNIT) SC SCH ×2 (06:35→10:59)
[2018-08-18] MEDS: NS IV 1000 ML 1,000 ML IV SCH (06:35)
[2018-08-18 06:47] LABS: BASOPHILS % (AUTO) 0 % (0-10); EOSINOPHILS # (AUTO) 0.5 10^3/uL (0.0-0.3); EOSINOPHILS % (AUTO) 5 % (0-10); HEMATOCRIT 38 % (40-54); HEMOGLOBIN 13.1 G/DL (13.3-17.7); LYMPHOCYTES % (AUTO) 21 % (12-44); MEAN CORPUSCULAR HEMOGLOBIN 30 PG (25-34); MEAN CORPUSCULAR HGB CONC 35 G/DL (32-36); MEAN CORPUSCULAR VOLUME 86 FL (80-99); MEAN PLATELET VOLUME 9.5 FL (7.4-10.4); MONOCYTES # (AUTO) 1.1 X 10^3 (0.0-1.0); MONOCYTES % (AUTO) 11 % (0-12); NEUTROPHILS # (AUTO) 5.8 X 10^3 (1.8-7.8); NEUTROPHILS % (AUTO) 62 % (42-75); PLATELET COUNT 260 10^3/uL (130-400); RED BLOOD COUNT 4.34 10^6/uL (4.35-5.85); RED CELL DISTRIBUTION WIDTH 16.7 % (10.0-14.5); WHITE BLOOD COUNT 9.4 10^3/uL (4.3-11.0)
[2018-08-18 07:06] LABS: ALBUMIN 2.1 GM/DL (3.2-4.5); BILIRUBIN,TOTAL 0.5 MG/DL (0.1-1.0); CALCIUM 7.6 MG/DL (8.5-10.1); CREATININE SERUM 4.7 MG/DL (0.60-1.30); POTASSIUM 5.7 MMOL/L (3.6-5.0); TOTAL PROTEIN 4.1 GM/DL (6.4-8.2)
[2018-08-18 08:00] VITALS: BP 111/53
[2018-08-18] MEDS: KCL 20 MEQ TAB (K-DUR) PO SCH (08:23)
[2018-08-18] MEDS: ATORVASTATIN 40 MG (LIPITOR) TABLET PO SCH (08:23)
[2018-08-18] MEDS: CARVEDILOL 6.25 MG (COREG) TAB PO SCH (08:24)
[2018-08-18] MEDS: ASPIRIN 81 MG CHEW (CHILDREN'S ASA) PO SCH (08:24)
[2018-08-18] MEDS: PANTOPRAZOLE 40 MG (PROTONIX) TAB PO SCH (08:24)
--- NOTE | 2018-08-18 09:29 | Cardiology Progress Note ---
Subjective Date Seen by Provider: Aug 18, 2018 Time Seen by Provider: 09:26 Subjective/Events-last exam Patient complaining of nausea. Continues to have peripheral edema. Last reported urine output at 8pm last night. Objective-Cardiology Exam Last Set of Vital Signs Vital Signs 08/18/18 08/18/18 00:00 08:00 Temp 98.0 Pulse 68 Resp 20 B/P (MAP) 144/52 (82) Pulse Ox 95 O2 Delivery Room Air Capillary Refill : I&O Intake and Output 08/18/18 00:00 Intake Total 1580 ml Output Total 775 ml Balance 805 ml Intake Oral 1580 ml Output Urine Total 775 ml General: Alert, Oriented X3, Cooperative HEENT: Atraumatic, PERRLA Neck: Supple, No JVD, No Thyromegaly Lungs: Clear to Auscultation, Normal Air Movement Heart: Regular Rate, Normal S1, Normal S2, No Murmurs Abdomen: Other (distended, diffusely ttp) Extremities: Normal Pulses, Other (+2-3 edema BLE) Skin: No Rashes, No Breakdown Neuro: Normal Speech Psych/Mental Status: Mental Status NL, Mood NL Results Lab Laboratory Tests 08/18/18 06:09 A/P-Cardiology Admission Diagnosis Shortness of breath Peripheral edema Coronary artery disease Peripheral arterial disease Hypertension Hyperlipidemia Assessment/Plan Shortness of breath, worsening recently. echo showed normal LV function with diastolic dysfunction. Continue to monitor Acute renal failure, worsening in renal function. On IVF's. Discussed management plan with Dr. Foss, continue IVF's and consider transfer to tertiary care center. Hyperkalemia- K+ 5.7, continue to monitor closely. Peripheral edema involving the lower and upper extremities with jugular venous distention. Coronary artery disease, history of CABG 3 done in 2003, cardiac catheterization done in March 2016 showed patent AMBROSIO to LAD, vein graft to the ramus intermedius which has diffuse disease distally, patent vein graft to the right coronary artery which has diffuse disease distally, the first diagonal branch has severe disease at its ostium which is a small artery not amendable to intervention, the proper circumflex artery and first obtuse marginal branch has diffuse disease and receiving collaterals from the right coronary artery, small artery not amendable to intervention. Has been followed with a talent acquisition administrator in [place], currently moving back to our area. Discussed the possibility of stress test in the near future. Peripheral arterial disease, history of iliac stent. No recent cardiac workup or vascular workup. Currently asymptomatic. Hypertension, continue to monitor blood pressure. Hyperlipidemia, monitor lipids. Diabetes mellitus, followed and managed by primary care physician Clinical Quality Measures DVT/VTE Risk/Contraindication: Risk Factor Score Per Nursin RFS Level Per Nursing on Admit: 4+=Very High HAJA MAYNARD Aug 18, 2018 09:29
--- NOTE | 2018-08-18 09:55 | Cardiology Progress Note ---
Subjective Date Seen by Provider: Aug 18, 2018 Time Seen by Provider: 09:54 Subjective/Events-last exam patient is laying down in bed, complaining of nausea. No chest pain. Review of Systems General: No Chills, No Night Sweats, No Fatigue, No Malaise, No Appetite, No Other HEENT: No Head Aches, No Visual Changes, No Eye Pain, No Ear Pain, No Dysphasia , No Sinus Congestion, No Post Nasal Drip, No Sore Throat, No Other Pulmonary: Dyspnea; No Cough, No Pleuritic Chest Pain, No Other Cardiovascular: Edema; No: Chest Pain, Palpitations, Orthopnea, Paroxysmal Noc. Dyspnea, Lt Headedness, Other Objective-Cardiology Exam Last Set of Vital Signs Vital Signs Capillary Refill : I&O Intake and Output 08/18/18 00:00 Intake Total 1580 ml Output Total 775 ml Balance 805 ml Intake Oral 1580 ml Output Urine Total 775 ml General: Alert, Oriented X3, Cooperative HEENT: Atraumatic, PERRLA Neck: Supple, No JVD, No Thyromegaly Lungs: Clear to Auscultation, Normal Air Movement Heart: Regular Rate, Normal S1, Normal S2, No Murmurs Abdomen: Normal Bowel Sounds, Other (distended, diffusely ttp) Extremities: No Clubbing, Normal Pulses, Other (+2-3 edema BLE) Skin: No Rashes, No Breakdown Neuro: Normal Speech Psych/Mental Status: Mental Status NL, Mood NL Results Lab Laboratory Tests 08/18/18 06:09 A/P-Cardiology Admission Diagnosis Shortness of breath Peripheral edema Coronary artery disease Peripheral arterial disease Hypertension Hyperlipidemia Assessment/Plan Shortness of breath, worsening recently. echo showed normal LV function with diastolic dysfunction. Continue to monitor Acute renal failure, worsening in renal function. On IVF's. Discussed management plan with Dr. Foss, continue IVF's and consider transfer to tertiary care center. Hyperkalemia- K+ 5.7, will give Kayexalate 10 monitor. Peripheral edema involving the lower and upper extremities with jugular venous distention, worsening today, still receiving IV fluid. Coronary artery disease, history of CABG 3 done in 2003, cardiac catheterization done in March 2016 showed patent AMBROSIO to LAD, vein graft to the ramus intermedius which has diffuse disease distally, patent vein graft to the right coronary artery which has diffuse disease distally, the first diagonal branch has severe disease at its ostium which is a small artery not amendable to intervention, the proper circumflex artery and first obtuse marginal branch has diffuse disease and receiving collaterals from the right coronary artery, small artery not amendable to intervention. Has been followed with a medical record retrieval specialist in [place], currently moving back to our area. Discussed the possibility of stress test in the near future. Peripheral arterial disease, history of iliac stent. No recent cardiac workup or vascular workup. Currently asymptomatic. Hypertension, continue to monitor blood pressure. Hyperlipidemia, monitor lipids. Diabetes mellitus, followed and managed by primary care physician Clinical Quality Measures DVT/VTE Risk/Contraindication: Risk Factor Score Per Nursin RFS Level Per Nursing on Admit: 4+=Very High ELMIRA KIM MD Aug 18, 2018 09:55
--- NOTE | 2018-08-18 10:01 | Discharge Summary-Hospitalist ---
Diagnosis/Chief Complaint Date of Admission Aug 14, 2018 at 00:35 Date of Discharge Discharge Date: Aug 18, 2018 Admission Diagnosis Anasarca, consider undiagnosed congestive heart failure. 2.previous history coronary artery disease post-bypass surgery. 3.hypertension. Discharge Diagnosis (1) INGRID (acute kidney injury) Status: Acute Assessment & Plan: Worsened further today with hyperkalemia and mild acidosis Kayexalate given UA reveals 4+ protein Discussed with family about possible transfer for nephrology evaluation Lisinopril held, lasix held Continue IVF Trend (2) Heart failure Status: Acute Assessment & Plan: Hold Lasix due to renal function Cardiology consulted, appreciate recs (3) Diabetes mellitus Status: Acute Assessment & Plan: Continue basal insulin at lower dose and SSI Hold metformin (4) CAD (coronary artery disease) Status: Chronic Assessment & Plan: Extensive history Cardiology consulted, appreciate recs (5) Essential (primary) hypertension Assessment & Plan: BP low to normotensive Trend Discharge Summary Procedures/Consulations Dr Morgan- Cardiology Discharge Physical Exam Allergies: Coded Allergies: No Known Drug Allergies (Unverified , 03/17/16) Vitals & I&Os Vital Signs Date Time Temp Pulse Resp B/P (MAP) Pulse Ox O2 Delivery O2 Flow Rate FiO2 08/18/18 14:38 64 20 111/53 93 Room Air 08/18/18 08:00 98.3 General Appearance: No Apparent Distress, WD/WN Cardiovascular: Regular Rate, Rhythm, No Murmur Gastrointestinal: Normal Bowel Sounds, Non Tender, Soft Extremity: Swelling Neurologic/Psychiatric: Alert, Oriented x3 Hospital Course Pt was admitted due to edema and concerns for heart failure. Echo was done and revealed diastolic dysfunction. He was treated with 40mg IV Lasix BID and his swelling improved drastically but renal function worsened from 0.96 on arrival to 3.5 on 08/17/18. Diuretics and nephrotoxic agents were held at that time and he was started on IVF. His creatinine continued to worsen increasing to 4.7 today with mild hyperkalemia. He was treated with Kayexalate for hyperkalemia. I discussed option of transfer for nephrology evaluation and he was agreeable. I discussed with [facility] Transfer line and Dr Melton accepted patient in transfer. Labs (last 24 hrs) Microbiology 08/14/18 Blood Culture - Preliminary, Resulted No growth 08/14/18 Gram Stain - Final, Complete 08/14/18 Wound Culture - Final, Complete Staph, Coag Neg (INTEGRITY CONSULTANT) Patient resulted labs reviewed. Pending Labs Discussion & Recommendations Discharge Planning: >30 minutes discharge planning Discharge Home Medications: Active Scripts Active Nitroglycerin 0.4 Mg Tab.subl 0.4 Mg SL PRN Reported Potassium Chloride 20 Meq Tablet.er 20 Meq PO BID Protonix (Pantoprazole Sodium) 40 Mg Tablet.dr 40 Mg PO DAILY Furosemide 20 Mg Tablet 20 Mg PO DAILY Metformin HCl 1,000 Mg Tablet 1,000 Mg PO BID Humalog (Insulin Lispro) 100 Unit/1 Ml Vial 13-18 Unit SQ AC Atorvastatin Calcium 40 Mg Tablet 40 Mg PO DAILY Lantus Solostar (Insulin Glargine,Hum.rec.anlog) 100 Unit/1 Ml Insuln.pen 45 Units SQ HS Aspirin 81 Mg Tab.chew 81 Mg PO DAILY Centrum Silver Tablet (Multivit-Min/FA/Lycopene/Lut) 1 Each Tablet 1 Each PO DAILY Lisinopril 10 Mg Tablet 10 Mg PO DAILY Carvedilol 6.25 Mg Tablet 6.25 Mg PO BID Instructions to patient/family Please see electronic discharge instructions given to patient. Clinical Quality Measures DVT/VTE Risk/Contraindication: Risk Factor Score Per Nursin RFS Level Per Nursing on Admit: 4+=Very High Problem Qualifiers (1) Heart failure: Heart failure type: diastolic Heart failure chronicity: acute Qualified Codes: I50.31 - Acute diastolic (congestive) heart failure (2) Diabetes mellitus: Diabetes mellitus type: type 2 Diabetes mellitus intermodal customer service insulin use: with nursing home use Diabetes mellitus complication status: without complication Qualified Codes: E11.9 - Type 2 diabetes mellitus without complications; Z79.4 - residential (current) use of insulin (3) CAD (coronary artery disease): Coronary Disease-Associated Artery/Lesion type: [place] artery [place] vs. transplanted heart: [place] heart Associated angina: without angina Qualified Codes: I25.10 - Atherosclerotic heart disease of [place] coronary artery without angina pectoris BOBBY PHELAN MD Aug 18, 2018 10:01
[2018-08-18] MEDS ORDERED: SOD POLYSTERENE 15 GM/60 ML (KAYEXALATE) UNIT DOSE PO NR (10:02)
--- NOTE | 2018-08-18 10:45 | NUR ---
Dr. Foss discussed with patient about transferring to [facility] due to kidney function. Report called to Yari Espana RN. Pt. in room with family at bedside waiting for ambulance service.
--- NOTE | 2018-08-18 14:35 | NUR ---
[facility] here to transport patient to [facility]. Patient has no complaints at this time and vital signs remain stable.
[2018-08-18 14:38] VITALS: BP 111/53
== END 2018-08-18 14:35 | disposition short-term general hospital (02) | DRG 291 ==
LOC: 4TH 08-14 00:35
PROVIDERS: ADMIT Internal Medicine; ATTEND Internal Medicine
DX: I11.0 Hypertensive heart disease with heart failure (principal); I50.31 Acute diastolic (congestive) heart failure; N17.9 Acute kidney failure, unspecified; T50.1X5A Adverse effect of loop [high-ceiling] diuretics, initial encounter; E87.5 Hyperkalemia; I25.10 Atherosclerotic heart disease of native coronary artery without angina pectoris; E11.51 Type 2 diabetes mellitus with diabetic peripheral angiopathy without gangrene; E78.00 Pure hypercholesterolemia, unspecified; K21.9 Gastro-esophageal reflux disease without esophagitis; I25.2 Old myocardial infarction; Z87.891 Personal history of nicotine dependence; Z79.4 Long term (current) use of insulin; Z95.1 Presence of aortocoronary bypass graft
CPT/HCPCS: 36415; 71045; 80048; 80053; 80061; 81000; 82962; 83605; 83735; 83880; 85025; 85027; 87040; 87070; 87205; 93306; 93970

== ENCOUNTER 2018-11-18 10:39 | Emergency (ER) | payer OTHER, MEDICARE ==
[~2018-11-18] VITALS: Ht 175.3 cm; Wt 100.1 kg
[~2018-11-18 10:39] MED LIST changes: +FURO20TA4 PO; +PANT40TA2 PO; +POTA-51 PO; -ROSU20TA PO; +ROSU20TA2 PO
--- NOTE | 2018-11-18 10:40 | NUR ---
Arrival via [facility] to ED Code Red emergency, pt transported from 911 call per spouse at his residence. Pt is 2 day illness and now not breathing well and poor color. Pt is being held up on couch by the . Pt is agonal breathing with sats in 70's, pt is unresponsive. Immediate performance of RSI with intubation per process planner report and contact with MD in ER just prior. Pt brought to ED for further evaluation and stabilization needing required locally. had asked EMS to transport directly to [facility] which they are unable and explained. The pt currently is pale, lying motionless on cart with BVM 100% O2 in progress. There is a orogastric tube placed that is connected to intermittant suction. Pt placed on ER cot with monitors and continued assistance of EMS with BVM. All personal clothing is cut off. Pt is reported varied bradycardiac rates mid 40's to 60. the pre-hospital fingerstick is 136. Pt has a patent IO needle to distal tibia of left leg. Pt is a known cardiac pt with approx date 2003 CABG and some type current cancer. No further hx available, no family member present. No med list available. No report of exact last wellness time. Estimate weight 100 kg for this emergency.
[2018-11-18] MEDS ORDERED: CALCIUM CHLORIDE 1 GM/10 ML (IMS) SYR INJ ONE (10:41)
[2018-11-18] MEDS ORDERED: EPINEPHrine 0.1 MG/ML 10 ML (HOSPIRA) SYR IJ ONE (10:41)
[2018-11-18] MEDS ORDERED: DOPamine DRIP 400,000 MCG/250 ML BAG IV ONE (10:41)
--- NOTE | 2018-11-18 10:44 | NUR ---
EKG done. Staff nurses present with attempts at peripheral IV startes as difficulties per EMS. Labs were drawn at 1050. No successful IV start. Maintain EMS's NS running via pressure to IO.
--- NOTE | 2018-11-18 10:52 | ED Respiratory ---
General Stated Complaint: RESPIRATORY DISTRESS Source: EMS Exam Limitations: clinical condition History of Present Illness Date Seen by Provider: Nov 18, 2018 Time Seen by Provider: 10:38 (Immediately upon arrival) This is a 68-year-old man brought to the emergency department by EMS intubated, they had received a call for respiratory distress and altered mental status. Patient was "unresponsive" with his holding him up on the sofa, he reportedly had agonal respirations with an oxygen saturation in the 70s range so he was intubated immediately. Blood glucose was in the 130s reportedly. Blood pressure initially 103 systolic also per EMS. Further history currently not available. Patient received a dose of Norcuron about 5 minutes prior to arrival. Allergies and Home Medications Allergies Coded Allergies: No Known Drug Allergies (Unverified , 03/17/16) Home Medications Aspirin 81 Mg Tab.chew, 81 MG PO DAILY, (Reported) Atorvastatin Calcium 40 Mg Tablet, 40 MG PO DAILY, (Reported) Carvedilol 6.25 Mg Tablet, 6.25 MG PO BID, (Reported) Furosemide 20 Mg Tablet, 20 MG PO DAILY, (Reported) Insulin Glargine,Hum.rec.anlog 100 Unit/1 Ml Insuln.pen, 45 UNITS SQ HS, ( Reported) Insulin Lispro 100 Unit/1 Ml Vial, 13-18 UNIT SQ AC, (Reported) Lisinopril 10 Mg Tablet, 10 MG PO DAILY, (Reported) Metformin HCl 1,000 Mg Tablet, 1,000 MG PO BID, (Reported) Multivit-Min/FA/Lycopene/Lut 1 Each Tablet, 1 EACH PO DAILY, (Reported) Nitroglycerin 0.4 Mg Tab.subl, 0.4 MG SL PRN Prescribed by: ELMIRA KIM on 03/18/16 0821 Pantoprazole Sodium 40 Mg Tablet.dr, 40 MG PO DAILY, (Reported) Potassium Chloride 20 Meq Tablet.er, 20 MEQ PO BID, (Reported) Patient Home Medication List Home Medication List Reviewed: Yes Review of Systems Review of Systems Constitutional: other (review of systems unobtainable secondary to patient unresponsive and intubated) Past Fzifmxd-Xzfwju-Rgizsh Hx Patient Social History Alcohol Beverage of Choice: Beer Type Used: Cigarettes Former Smoker, Quit: Aug 14, 2004 Recent Hopitalizations: No Immunizations Up To Date Date of Pneumonia Vaccine: May 17, 2018 Date of Influenza Vaccine: May 17, 2018 Seasonal Allergies Seasonal Allergies: No Past Medical History Surgeries: Yes (stent in right leg, triple bypass, hernia repair, graft left arm) CABG Respiratory: No Currently Using CPAP: No Currently Using BIPAP: No Cardiac: Yes (Triple Bypass in November 2003) Coronary Artery Disease, Heart Attack, High Cholesterol, Hypertension Neurological: No Reproductive Disorders: No Sexually Transmitted Disease: No HIV/AIDS: No Gastrointestinal: Yes Gastroesophageal Reflux Musculoskeletal: No Endocrine: Yes Diabetes, Insulin dep HEENT: Yes (CATARACTS REMOVED 07/26/18) Cataract Loss of Vision: Bilateral Hearing Impairment: Hard of Hearing Cancer: No Psychosocial: No Integumentary: No Blood Disorders: No Adverse Reaction/Blood Tranf: No Family Medical History Diabetes mellitus 19 MOTHER FH: breast cancer 19 MOTHER FH: cancer 19 FATHER 19 MOTHER FH: heart disease 19 FATHER 19 MOTHER No Pertinent Family Hx Physical Exam Vital Signs - First Documented 11/18/18 12:20 B/P (MAP) 63/32 Capillary Refill : Height: 5'9.00" Weight: 220lbs. 11.0oz. 100.473062xa; 32.6 BMI Method:Unable to Obtain General Appearance: other (intubated, unresponsive) HEENT: other (endotracheal tube in place, bilateral breath sounds are present, no breath sounds in the epigastrium, trachea is midline) Respiratory: other (slightly coarse breath sounds with BVM ventilation) Cardiovascular: other (patient has weak peripheral pulses, heart rate is grossly regular with occasional ectopy) Gastrointestinal: soft, other (area of erythema approximately 10 cm over the left lower quadrant) Extremities: other (there is a right anterior and left posterior ulcer on the lower legs dressed with nonadherent dressing and white colored cream) Neurologic/Psychiatric: other (currently unresponsive to painful stimulus) Skin: warm/dry Focused Exam Lactate Level 11/18/18 11:50: Lactic Acid Level 3.54*H Lactic Acid Level Laboratory Tests Test 11/18/18 11:50 Lactic Acid Level 3.54 MMOL/L (0.50-2.00) *H Procedures/Interventions Lumen: triple Central Line Procedure: sterile drapes applied (chlorhexidine used) Position: internal jugular (R) (initial attempt at right subclavian vein, there was no blood return. Subsequent attempt at right femoral site, terminated secondary to initiation of chest compressions with peripheral access available.) Complications: none Post Position: sutured, good blood return, position confirmed w/ CXR CPR: Bradycardic PEA, 2 rounds of chest compressions, 1 mg of epinephrine, we achieved ROSC at that time Progress/Results/Core Measures Suspected Sepsis SIRS Temperature: Pulse: Respiratory Rate: Laboratory Tests 11/18/18 10:50: White Blood Count 3.3L Blood Pressure / Mean: 11/18/18 11:50: Lactic Acid Level 3.54*H Laboratory Tests 11/18/18 10:50: Creatinine 3.92H, Platelet Count 98L Results/Orders Lab Results Laboratory Tests Test 11/18/18 10:50 11/18/18 11:00 11/18/18 11:50 Range/Units White Blood Count 3.3 L 4.3-11.0 10^3/uL Red Blood Count 2.97 L 4.35-5.85 10^6/uL Hemoglobin 8.7 L 13.3-17.7 G/DL Hematocrit 26 L 40-54 % Mean Corpuscular Volume 88 80-99 FL Mean Corpuscular Hemoglobin 29 25-34 PG Mean Corpuscular Hemoglobin Concent 33 32-36 G/DL Red Cell Distribution Width 19.7 H 10.0-14.5 % Platelet Count 98 L 130-400 10^3/uL Mean Platelet Volume 11.3 H 7.4-10.4 FL Sodium Level 130 L 135-145 MMOL/L Potassium Level 4.1 3.6-5.0 MMOL/L Chloride Level 90 L 98-107 MMOL/L Carbon Dioxide Level 11 L 21-32 MMOL/L Anion Gap 29 H 5-14 MMOL/L Blood Urea Nitrogen 86 H 7-18 MG/DL Creatinine 3.92 H 0.60-1.30 MG/DL Estimat Glomerular Filtration Rate 15 BUN/Creatinine Ratio 22 Glucose Level 150 H 70-105 MG/DL Calcium Level 7.0 L 8.5-10.1 MG/DL Troponin T 337 *H <=15 NG/L Pro-B-Type Natriuretic Peptide > 51710.0 H <75.0 PG/ML Urine Color YELLOW Urine Clarity SLT CLOUDY Urine pH 5.5 5-9 Urine Specific Thornton 1.025 H 1.016-1.022 Urine Protein 3+ H NEGATIVE Urine Glucose (UA) NEGATIVE NEGATIVE Urine Ketones NEGATIVE NEGATIVE Urine Nitrite NEGATIVE NEGATIVE Urine Bilirubin NEGATIVE NEGATIVE Urine Urobilinogen 0.2 NORMAL MG/DL Urine Leukocyte Esterase NEGATIVE NEGATIVE Urine RBC (Auto) 2+ H NEGATIVE Urine RBC NONE /HPF Urine WBC 0-2 /HPF Urine Squamous Epithelial Cells 0-2 /HPF Urine Crystals PRESENT H /LPF Urine Amorphous Sediment MOD DUNCAN PHOSPHATE H /LPF Urine Bacteria TRACE /HPF Urine Casts PRESENT /LPF Urine Hyaline Casts 0-2 H /LPF Urine Mucus NONE /LPF Urine Culture Indicated NO Lactic Acid Level 3.54 *H 0.50-2.00 MMOL/L My Orders Orders - LUCIO,SYDNEY T DO Chest 1 View Ap/Pa Only (11/18/18 10:52) Ekg Tracing (11/18/18 10:52) Cbc No Diff (11/18/18 10:52) Basic Metabolic Panel (11/18/18 10:52) Troponin T (11/18/18 10:52) Probnp Fs (11/18/18 10:52) Urinalysis (11/18/18 10:52) Urine Culture (11/18/18 10:52) Engel Cath (11/18/18 10:52) Ns Iv 1000 Ml (Sodium Chloride 0.9%) (11/18/18 10:55) Norepinephrine (Levophed) (11/18/18 10:56) Ns (Ivpb) (Sodium Chloride 0.9%) (11/18/18 10:56) Piperacillin/Tazobactam (Bulk) (Zosyn In (11/18/18 11:44) Vancomycin Injection (Vancomycin Injecti (11/18/18 11:44) Dobutamine Drip (Dobutrex Drip) (11/18/18 12:02) Hydrocortisone Injection (Solu-Cortef In (11/18/18 12:03) Piperacillin Sodium/Tazobactam (Zosyn Vi (11/18/18 12:30) Heparin (Bolus Per Protocol) (Heparin (B (11/18/18 12:30) Heparin Drip 35205 Unit/500ml (Heparin (11/18/18 12:30) Calcium Chloride 10% Injection (Calcium (11/18/18 12:34) Lactic Acid Analyzer (11/18/18 12:36) Norepinephrine (Levophed) (11/18/18 12:41) Epinephrine 1 Mg Injection (Adrenalin I (11/18/18 12:42) Ns (Ivpb) (Sodium Chloride 0.9%) (11/18/18 12:42) Ns (Ivpb) (Sodium Chloride 0.9%) (11/18/18 12:42) Vancomycin Injection (Vancomycin Injecti (11/18/18 12:43) Ns (Ivpb) (Sodium Chloride 0.9% Ivpb Bag (11/18/18 12:43) Ns Iv 500 Ml (Sodium Chloride 0.9%) (11/18/18 12:43) Epinephrine 1 Mg Injection (Adrenalin I (11/18/18 13:00) Ns (Ivpb) (Sodium Chloride 0.9%) (11/18/18 13:00) Blood Culture (11/18/18 13:00) Ns (Ivpb) (Sodium C... W/Epinephrine 1 (11/18/18 13:45) Norepinephrine (Levophed) (11/18/18 13:45) Medications Given in ED Current Medications Medications Dose Ordered Sig/Terrance Route Start Time Stop Time Status Last Admin Dose Admin Dobutamine HCl/ Dextrose 250 ml @ ud STK-MED ONCE IV 11/18/18 12:02 11/18/18 12:05 DC 11/18/18 12:20 30 MLS/HR Heparin Sodium (Porcine) 10,000 unit STK-MED ONCE .ROUTE 11/18/18 12:30 11/18/18 12:33 DC 11/18/18 12:43 5,000 UNIT Heparin Sodium/ Dextrose 500 ml @ ud STK-MED ONCE IV 11/18/18 12:30 11/18/18 12:33 DC 11/18/18 12:44 20 MLS/HR Norepinephrine 4 mg STK-MED ONCE IV 11/18/18 10:56 11/18/18 10:58 DC 11/18/18 11:44 4 MG Sodium Chloride 250 ml @ ud STK-MED ONCE .ROUTE 11/18/18 12:42 11/18/18 12:45 DC 11/18/18 11:44 19 MLS/HR Vital Signs/I&O 11/18/18 12:20 B/P (MAP) 63/32 Capillary Refill : Progress Note #1: Progress Note 68M hx CAD, light chain disease, renal disease, here for acute respiratory failure, arrives intubated, unresponsive after recent norcuron. BP's in the 80' s systolic, started fluids, BP continued to drop, we started dopamine peripherally. I attempted sterile R subclavian line but was unable to draw back any blood. I attempted a sterile R femoral line at that time but pt became bradycardic to the 30's did not respond to atropine, and at that time we could not feel pulses so we began chest compressions. We gave 1 mg epi. We performed 2 rounds of CPR and achieved ROSC. I placed a sterile R IJ CVC without apparent complication. On my view of CXR there is no PTX, CVC tip overlies R atrium, ETT above the stefan, NG courses below diaphragm. We began levophed peripherally. At that time SBP 90s, MAP 70's, HR 98, SpO2 100%. I spoke to family and notified them of pt's condition, they stated pt was treated by most of his physicians at [facility]. Dr. Yuli Contreras (ICU at [facility]) accepts at 11:49AM. Progress Note #2: Progress Note Shortly after noon I spoke to Dr. Fagan from cardiology at [facility] to notify him of patient's presentation. Recommended deferring anticoagulation if there was concern for chest wall trauma from prolonged CPR however after 4 minutes of CPR I feel this is lower risk and we can reverse the anticoagulation if needed. We discussed therapeutic hypothermia however patient is currently unstable hemodynamically and this will be deferred. Progress Note #3: Progress Note Patient received Zosyn, vancomycin, hydrocortisone, calcium chloride, 2 L of saline, dopamine, norepinephrine, dobutamine, heparin bolus and drip, and epinephrine (during CPR) prior to transport. At the time transport was available pt was felt to have been stabilized within the limits of what our facility could offer. I spoke with the family and explained that pt was critically ill and I offered reassurance. Critical Care Note Critical Care Start Time: 11:30 Stop Time: 12:05 Total Time (minutes) 35 Progress Critical care time is exclusive of time spent on separately billable procedures. I'm spent at bedside, managing airway, interpreting EKG, chest x-ray , lab tests. Speaking to family, speaking with medical specialists. Departure Impression Primary Impression: Cardiac arrest Additional Impressions: Cardiogenic shock Ventilator dependent Acidosis Anemia Thrombocytopenia Unresponsive Hypocalcemia Elevated troponin Elevated brain natriuretic peptide (BNP) level CKD (chronic kidney disease) Disposition: 02 XFER SHT-TRM HOSP Condition: Critical Transfer Time Spoke to Accepting Phy: 11:49 Transfer Progress Notes Accepted by Dr Ricci Contreras (ICU) @ [facility] Method of Transfer: EMS Departure-Patient Inst. Referrals: NO,LOCAL PHYSICIAN (PCP/Family) Primary Care Physician SYDNEY VALDES DO Nov 18, 2018 10:52
[2018-11-18] MEDS ORDERED: NS IV 1000 ML 1,000 ML IV STA (10:55)
--- NOTE | 2018-11-18 10:55 | NUR ---
Time out with plan for central line planning, implied emergency consent for medications requiring better access and large bore size, caustic to veins.
--- NOTE | 2018-11-18 10:55 | NUR ---
Was notified by registration of arriving to waiting room. No available extra staff to visit presently, add'l family member w/.
[2018-11-18] MEDS ORDERED: NOREPINEPHRINE 4 MG/4 ML (LEVOPHED) AMP IV ONE ×2 (10:56→12:41)
[2018-11-18] MEDS ORDERED: NS (IVPB) 250 ML ONE ×4 (10:56→13:00)
--- NOTE | 2018-11-18 11:00 | NUR ---
16 Fr indwelling urethral catheter placed. Immediate return of 75 ml dk yellow urine.
--- NOTE | 2018-11-18 11:03 | NUR ---
Portable autovent placed by rn staffing's with Tidal volume start 300, rate [address] Ng. Began ETCO2 monitoring 1100 aand currently 30.
[2018-11-18 11:04] LABS: HEMOGLOBIN 8.7 G/DL (13.3-17.7); MEAN PLATELET VOLUME 11.3 FL (7.4-10.4); RED CELL DISTRIBUTION WIDTH 19.7 % (10.0-14.5); WHITE BLOOD COUNT 3.3 10^3/uL (4.3-11.0)
--- NOTE | 2018-11-18 11:05 | NUR ---
has began the attempt at central line.
--- NOTE | 2018-11-18 11:06 | NUR ---
Note change in SaO2 dropping with change in ETCO2 to 12. Discontinued the Autovent and resumed on BVM rescue breathing rates.
--- NOTE | 2018-11-18 11:08 | NUR ---
Noted systolic down to 49/ with ventilation change out and began Dopamine at 5 mcg/kg/min.
--- NOTE | 2018-11-18 11:10 | NUR ---
Continues low ETCO2 10-12. Note bradycardiac rate coming down <50. Continue effective BVM rescue breathing with MD attempting central line.
--- NOTE | 2018-11-18 11:12 | NUR ---
ATROPINE 1 mg for bradycardia rate 36. ETCO2 at 9.
--- NOTE | 2018-11-18 11:14 | NUR ---
BLS: chest compressions began at this time for pulselessness per ACLS guidelines. ETCO2 rising to 30's.
[2018-11-18 11:15] LABS: BILIRUBIN,URINE NEGATIVE (NEGATIVE); CLARITY,URINE SLT CLOUDY; COLOR,URINE YELLOW; GLUCOSE, URINE (UA) NEGATIVE (NEGATIVE); KETONES,URINE NEGATIVE (NEGATIVE); LEUKOCYTE ESTERASE ,URINE NEGATIVE (NEGATIVE); NITRITE,URINE NEGATIVE (NEGATIVE); PH,URINE 5.5 (5-9); PROTEIN,URINE 3+ (NEGATIVE); UROBILINOGEN,URINE 0.2 MG/DL (NORMAL)
[2018-11-18 11:16] LABS: BACTERIA,URINE TRACE /HPF; SQUAMOUS EPITHELIAL CELL,UR 0-2 /HPF; WBC,URINE 0-2 /HPF
--- NOTE | 2018-11-18 11:16 | NUR ---
EPINEPHRINE 1 MG push given per Dr order, ACLS guidelines. Circulating with resumed compressions.
--- OUTSIDE RECORDS SUMMARY | 2018-11-18 11:16 | XMS REPORT | Encounter Summary ---
Author Author [facility] Organization [facility] Address Unknown Phone Unavailable Care Team Providers Care Special Agent In Charge Name Role Phone Nicole Weir MD 21 Augusto Elkins MD PCP Reason for Referral * Test (Urgent) Referred By Contact Referred To Contact Status Reason Specialty Diagnoses / Procedures Domenic Gutiérrez MD [address] [place] [address] [facility] [address] [address] New Request Cardiology Diagnoses Multiple myeloma, remission status unspecified (HCC) P rocedures 2-D + DOPPLER ECHOCARDIOGRAM Encounter Details Care Team Description Date Type Department Penelope Hill RN Multiple myeloma, remission status unspecified (HCC) (Primary Dx) 11/17/2018 Orders Only [facility] [place] [id number] [place] [id number] Social History Date Tobacco Use Types Packs/Day Years Used Quit: 09/2003 Former Smoker Cigarettes Smokeless Tobacco: Never Used Alcohol Use Drinks/Week oz/Week Comments Yes 2 Cans of 1.2 beer Sex Assigned at Date Recorded Not on file Industry Job Start Date Occupation Not on file Not on file Not on file Travel End Travel History Travel Start No recent travel history available. documented as of this encounter Plan of Treatment Order Schedule Name Priority Associated Diagnoses Expected: 11/17/2018 (Approximate), Expires: 11/18/2019 2-D + DOPPLER ECHOCARDIOGRAM STAT Multiple myeloma, remission status unspecified (HCC) documented as of this encounter Visit Diagnoses Diagnosis Multiple myeloma, remission status unspecified (HCC) - Primary documented in this encounter
--- OUTSIDE RECORDS SUMMARY | 2018-11-18 11:16 | XMS REPORT | Encounter Summary ---
Author Author [facility] Organization [facility] Address Unknown Phone Unavailable Care Team Providers Care Explosives Operator Name Role Phone Nicole Weir MD 21 Augusto Elkins MD PCP Encounter Details Care Team Description Date Type Department Valentino De Paz MD [address] Ortho[facility] [address] [place] [id number] [phone] Chronic kidney disease, unspecified 11/17/2018 [facility] [address] [address] Social History Date Tobacco Use Types Packs/Day [...] as of this encounter Plan of Treatment Not on filedocumented as of this encounter Procedures Comments Procedure Name Priority Date/Time Associated Diagnosis PROTEIN/CR RATIO,UR RAN Routine 11/17/2018 Chronic kidney disease, 4:11 PM CDT unspecified CKD stage SODIUM-URINE RANDOM Routine 11/17/2018 Chronic kidney disease, 4:11 PM CDT unspecified CKD stage documented in this encounter Results * SODIUM-URINE RANDOM (11/17/2018 4:11 PM CDT) Sodium, Random 66 MMOL/L [facility] Specimen Urine - Urine Performing Organization Address City/State[facility] Phone Number MAIN LAB [address] [place] [address] * PROTEIN/CR RATIO,UR RAN (11/17/2018 4:11 PM CDT) Protein, Random 590 MG/DL [facility] Creatinine, 74 MG/DL [facility] Random Protein/CR 8.0 [facility] ratio Specimen Urine - Urine Performing Organization Address City/State/Zipcode Phone Number MAIN LAB [address] [place] [address] documented in this encounter Visit Diagnoses Diagnosis Chronic kidney disease, unspecified CKD stage documented in this encounter
--- OUTSIDE RECORDS SUMMARY | 2018-11-18 11:16 | XMS REPORT | Encounter Summary ---
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) Encounter Details Care Team Description Date Type Department Valentino De Paz MD [address] Includes [facility] Lvl [address] [place] [id number] Chronic kidney disease, unspecified CKD stage (Primary Dx) 11/17/2018 Office Visit [facility] [address] [place] [address] Social History Date Tobacco Use Types Packs/Day Years Used Quit: 09/2003 Former Smoker Cigarettes Smokeless Tobacco: Never Used Tobacco Cessation: Counseling Given: Yes Alcohol Use Drinks/Week oz/Week Comments Yes 2 Cans of 1.2 beer Sex Assigned at Date Recorded Not on file Industry Job Start Date Occupation Not on file Not on file Not on file Travel End Travel History Travel Start No recent travel history available. documented as of this encounter Last Filed Vital Signs Time Taken Vital Sign Reading 11/17/2018 1:25 PM CDT Blood Pressure 126/61 11/17/2018 1:25 PM CDT Pulse 99 11/17/2018 1:21 PM CDT Temperature 36.4 C (97.5 F) - Respiratory Rate - - Oxygen Saturation - - Inhaled Oxygen - Concentration 11/17/2018 1:21 PM CDT Weight 104.3 kg (230 lb) 11/17/2018 1:21 PM CDT Height 175.3 cm (5' 9") 11/17/2018 1:21 PM CDT Body Mass Index 33.97 documented in this encounter Plan of Treatment Not on filedocumented as of this encounter Procedures Comments Procedure Name Priority Date/Time Associated Diagnosis POC URINE DIPSTICK AUTO Routine 11/17/2018 Chronic kidney disease, READ unspecified CKD stage documented in this encounter Results * PROTEIN/CR RATIO,UR RAN (11/17/2018 4:11 PM CDT) Protein, Random 590 MG/DL [facility] Creatinine, 74 MG/DL [facility] Random Protein/CR 8.0 [facility] ratio Specimen Urine - Urine Performing Organization Address [facility] Phone Number MAIN LAB [address] [place] [address] * SODIUM-URINE RANDOM (11/17/2018 4:11 PM CDT) Sodium, Random 66 MMOL/L [facility] Specimen Urine - Urine Performing Organization Address [facility] Phone Number MAIN LAB [address] [place] [phone] * POC URINE DIPSTICK AUTO READ (11/17/2018) Urine Glucose norm IN CLINIC POC Urine Bilirubin neg IN CLINIC POC Urine Ketone neg IN CLINIC POC Urine Specific 1.015 IN CLINIC [place] POC Urine Blood POC neg IN CLINIC Urine PH POC 5 IN CLINIC Urine Protein 500 IN CLINIC POC Urine norm IN CLINIC Urobilinogen POC Urine Nitrite neg IN CLINIC POC Urine neg IN CLINIC Leukocytes POC Color,UA IN CLINIC Turbidity,UA IN CLINIC Specimen Urine - Urine Performing Organization Address [facility] Phone Number IN CLINIC documented in this encounter Visit Diagnoses Diagnosis Chronic kidney disease, unspecified CKD stage - Primary documented in this encounter
--- OUTSIDE RECORDS SUMMARY | 2018-11-18 11:16 | XMS REPORT | Clinical Summary ---
Author Author [facility] Organization [facility] Address Unknown Phone Unavailable Care Team Providers Care Accounting Officer Name Role Phone Nicole Weir MD 21 Augusto Elkins MD PCP Source Comments Some departments are not documenting in the electronic medical record. If you do not see the information that you expected, contact Release of Information in the Health Information Management department at [phone] for further assistance in locating additional records.[facility] Allergies No Known Allergies Medications End Date Status Medication Sig Dispensed Refills Start Date Active aspirin EC 81 mg tablet Take 81 mg by 0 mouth daily. Active acyclovir (ZOVIRAX) 200 Take 200 mg 0 09/15/201 mg capsule by mouth 9 twice daily. Active atorvastatin (LIPITOR) 40 Take 40 mg by 0 03/17/201 mg tablet mouth daily 6 with dinner. Active carvedilol (COREG) 6.25 Take 6.25 mg 0 03/17/201 mg tablet by mouth 6 twice daily. Active cyclophosphamide Take 650 mg 0 (CYTOXAN) 50 mg capsule by mouth 9 every 7 days. Active dexamethasone (DECADRON) Take 40 mg by 0 4 mg tablet mouth every 7 9 days. Active fluticasone (FLONASE) 50 Apply 2 0 mcg/actuation nasal spray sprays to 9 each nostril as directed daily. Active furosemide (LASIX) 40 mg Take 40 mg by 0 tablet mouth every 9 24 hours as needed. Active insulin glargine (LANTUS) Inject 5 0 100 unit/mL injection Units under 9 the skin at bedtime daily. Active insulin lispro(+) Inject 8 0 03/04/201 (HUMALOG) 100 unit/mL Units under 9 injection the skin three times daily with meals. Active insulin lispro(+) CORRECTIONAL 0 (HUMALOG KWIKPEN) 100 Dose, 6 unit/mL injection PEN Medium-dose Regimen for Blood Sugars: Less than or equal to 140=no correctional insulin 141 - 180=give and/or add 2 unit 181 - 220=give and/or add 5 units 221 - 280=give and/or add 8 units If glucose greater than 250 on two consecutive readings or greater than 300 once notify provider. 281 - 340=give and/or add 11 units Greater than 3... Active isosorbide mononitrate SR Take 30 mg by 0 (IMDUR) 30 mg tablet mouth daily. 6 Active metOLazone (ZAROXOLYN) 0 2.5 mg tablet 9 Active nitroglycerin (NITROSTAT) Prn . 0 0.4 mg tablet 6 Active ondansetron (ZOFRAN ODT) Dissolve 4 mg 0 4 mg rapid dissolve by mouth 9 tablet every 24 hours as needed. Active pantoprazole DR Take 20 mg by 0 (PROTONIX) 20 mg tablet mouth daily. Active prochlorperazine maleate Take 10 mg by 0 (COMPAZINE) 10 mg tablet mouth every 9 24 hours as needed. 11/01/2018 amoxicillin(+) (AMOXIL) Take 500 mg 0 500 mg tablet by mouth 9 twice daily. For 7 days. Filled 10/2511/17/2018 Discontinued ergocalciferol (VITAMIN Take 1 0 D-2) 50,000 unit capsule capsule by 9 mouth every 7 days. 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 S/P CABG (coronary artery bypass graft) 10/26/2018 Stage 5 chronic kidney disease not on chronic dialysis 10/26/2018 Peripheral vascular disease 10/26/2018 Peripheral edema 10/26/2018 Ulcers of both lower extremities, limited to breakdown of skin 10/26/2018 Encounters Care Team Description Date Type Specialty Valentino De Paz MD Chronic kidney disease, unspecified 11/17/2018 Hospital Lab Encounter Domenic Gutiérrez MD Canceled (Patient-Personal) 11/17/2018 Hospital Radiology Encounter Valentino De Paz MD Chronic kidney disease, unspecified CKD stage (Primary Dx) 11/17/2018 Office Visit Nephrology West Bernal MD Cardiac Eval (Amyloidosis); New Patient 11/17/2018 Office Visit Cardiology Domenic Gutiérrez MD Type 2 diabetes mellitus without complication, unspecified whether terminal operations supervisor insulin use (HCC) ; Light chain (AL) amyloidosis (HCC) 11/17/2018 Lab Only Oncology Penelope Hill RN Multiple myeloma, remission status unspecified (HCC) (Primary Dx) 11/17/2018 Orders Only Oncology Barbie Coffey RN Light chain (AL) amyloidosis (HCC) (Primary Dx); Type 2 diabetes mellitus without complication, unspecified whether residential insulin use (HCC) 11/04/2018 Orders Only Oncology Domenic Gutiérrez MD Rickard, Van 10/26/2018 Clinical Oncology Support Domenic Gutiérrez MD 10/26/2018 Lab Only Oncology Domenic Gutiérrez MD Light chain (AL) amyloidosis (HCC); S/P CABG (coronary artery bypass graft); Stage 5 chronic kidney disease not on chronic dialysis (HCC); Peripheral vascular disease (HCC); Peripheral edema; Ulcers of both lower extremities, limited to breakdown of skin (HCC) 10/26/2018 Office Visit Oncology Barbie Coffey RN Light chain (AL) amyloidosis (HCC) (Primary Dx) 10/26/2018 Orders Only Oncology Penelope Hill RN 10/26/2018 Documentation Oncology Nelda Spring RN Transplant Referral (Denied- second attempt) 10/18/2018 Telephone Transplant Surgery Nelda Spring RN Transplant Referral (d/w Dr Sanchez- denied) 10/07/2018 Telephone Transplant Surgery Marcela Rocha MD Amyloidosis, unspecified (HCC) 10/05/2018 Hospital Lab Encounter Marcela Rocha MD Amyloidosis, unspecified (HCC) 10/01/2018 Hospital Lab Encounter Melissa Zimmer RN Navigation Assessment 09/21/2018 Telephone Oncology Melissa Zimmer RN 09/21/2018 Documentation Oncology Shoshana Dominguez Transplant Referral (Intake Interview ) 09/20/2018 Telephone Transplant Surgery 09/15/2018 Hospital Radiology Encounter 08/30/2018 Hospital Radiology Encounter 08/23/2018 Hospital Radiology Encounter 08/20/2018 Hospital Radiology Encounter from Last 3 Months Family History Medical History Relation Name Comments Heart Disease Brother Cancer Father Cancer-Breast Mother Diabetes Mother Heart Disease Mother Stroke Mother Relation Name Status Comments Brother Alive Father Mother Social History Date Tobacco Use Types Packs/Day [...] Travel Start No recent travel history available. Last Filed Vital Signs Time Taken Vital Sign Reading 11/17/2018 1:25 PM CDT Blood Pressure 126/61 11/17/2018 1:25 PM CDT Pulse 99 11/17/2018 1:21 PM CDT Temperature 36.4 C (97.5 F) 10/26/2018 12:23 PM CDT Respiratory Rate 20 10/26/2018 12:23 PM CDT Oxygen Saturation 97% - Inhaled Oxygen - Concentration 11/17/2018 1:21 PM CDT Weight 104.3 kg (230 lb) 11/17/2018 1:21 PM CDT Height 175.3 cm (5' 9") 11/17/2018 1:21 PM CDT Body Mass Index 33.97 Plan of Treatment Health Maintenance Due Date Last Done Comments HEPATITIS C SCREENING 1950 PHYSICAL (COMPREHENSIVE) 1957 EXAM DILATED EYE EXAM 1968 DTAP/TDAP VACCINES (1 - 1968 Tdap) FOOT EXAM 1968 MICROALBUMIN 1968 COLORECTAL CANCER 2000 SCREENING SHINGLES RECOMBINANT 2000 VACCINE (1 of 2) ABDOMINAL AORTIC ANEURYSM 2015 SCREENING PNEUMONIA (PCV13/PPSV23) 2015 VACCINES (1 of 2 - PCV13) INFLUENZA VACCINE 03/17/2019 HBA1C 05/19/2019 11/17/2018 Procedures Comments Procedure Name Priority Date/Time Associated Diagnosis SODIUM-URINE RANDOM Routine 11/17/2018 Chronic kidney disease, 4:11 PM CDT unspecified CKD stage PROTEIN/CR RATIO,UR RAN Routine 11/17/2018 Chronic kidney disease, 4:11 PM CDT unspecified CKD stage LDH-LACTATE DEHYDROGENASE Routine 11/17/2018 Light chain (AL) 9:10 AM CDT amyloidosis (HCC) KAPPA/LAMBDA FREE LIGHT Routine 11/17/2018 Light chain (AL) CHAINS 9:10 AM CDT amyloidosis (HCC) C REACTIVE PROTEIN (CRP) Routine 11/17/2018 Light chain (AL) 9:10 AM CDT amyloidosis (HCC) CBC AND DIFF Routine 11/17/2018 Light chain (AL) 9:10 AM CDT amyloidosis (HCC) COMPREHENSIVE METABOLIC Routine 11/17/2018 Light chain (AL) PANEL 9:10 AM CDT amyloidosis (HCC) HEMOGLOBIN A1C Routine 11/17/2018 Type 2 diabetes mellitus 9:10 AM CDT without complication, unspecified whether residential insulin use (HCC) Light chain (AL) amyloidosis (HCC) POC URINE DIPSTICK AUTO Routine 11/17/2018 Chronic kidney disease, READ unspecified CKD stage [facility] [place] TEST Routine 10/26/2018 1:30 PM CDT [facility] [place] TEST Routine 10/26/2018 1:30 PM CDT [facility] REFERENCE TEST Routine 10/26/2018 1:30 PM CDT [facility] REFERENCE TEST Routine 10/26/2018 1:30 PM CDT OUTSIDE PATHOLOGY CONSULT 10/05/2018 11:16 AM LINE SERVICE PERSON PATHOLOGY REPORTS FROM 10/05/2018 OUTSIDE SCAN 12:00 AM LINE SERVICE PERSON OUTSIDE PATHOLOGY CONSULT 10/01/2018 10:55 AM LINE SERVICE PERSON PATHOLOGY REPORTS FROM 10/01/2018 OUTSIDE SCAN 12:00 AM LINE SERVICE PERSON GENERAL RAD MISC EXTERNAL Routine 09/15/2018 IMAGING 9:50 AM LINE SERVICE PERSON [address] MISC EXTERNAL IMAGING Routine 08/30/2018 11:15 AM LINE SERVICE PERSON GENERAL RAD CHEST Routine 08/23/2018 EXTERNAL IMAGING 3:00 PM LINE SERVICE PERSON GENERAL RAD CHEST Routine 08/20/2018 EXTERNAL IMAGING 7:45 PM LINE SERVICE PERSON from Last 3 Months Results * PROTEIN/CR RATIO,UR RAN (11/17/2018 4:11 PM CDT) Protein, Random 590 MG/DL [facility] Creatinine, 74 MG/DL [facility] Random Protein/CR 8.0 [facility] ratio Specimen Urine - Urine Performing Organization Address [facility] Phone Number [facility] [address] [phone] * SODIUM-URINE RANDOM (11/17/2018 4:11 PM CDT) Sodium, Random 66 MMOL/L [facility] Specimen Urine - Urine Performing Organization Address [facility] Phone Number [facility] [address] [place] [phone] * KAPPA/LAMBDA FREE LIGHT CHAINS (11/17/2018 9:10 AM CDT) [place], FLC 3.00 (H) 0.33 - 1.94 MG/DL [facility] Lambda, FLC 2.95 (H) 0.57 - 2.63 MG/DL [facility] [place]/Lambda 1.02 0.26 - 1.65 [facility] FLC Specimen Blood Performing Organization Address [facility] Phone Number [facility] [address] [place] [address] * CBC AND DIFF (11/17/2018 9:10 AM CDT) White Blood 10.6 4.5 - 11.0 K/UL [facility] Cells RBC 3.44 (L) 4.4 - 5.5 M/UL [facility] Hemoglobin 10.2 (L) 13.5 - 16.5 GM/DL [facility] Hematocrit 29.0 (L) 40 - 50 % [facility] MCV 84.3 80 - 100 FL [facility] MCH 29.5 26 - 34 PG [facility] MCHC 35.0 32.0 - 36.0 G/DL [facility] RDW 20.6 (H) 11 - 15 % [facility] Platelet Count 124 (L) 150 - 400 K/UL [facility] MPV 8.3 7 - 11 FL [facility] Neutrophils 75 41 - 77 % [facility] Lymphocytes 9 (L) 24 - 44 % [facility] Monocytes 14 (H) 4 - 12 % [facility] Eosinophils 1 0 - 5 % [facility] Basophils 1 0 - 2 % [facility] Absolute 8.00 (H) 1.8 - 7.0 K/UL [facility] Neutrophil Count Absolute Lymph 1.00 1.0 - 4.8 K/UL [facility] Count Absolute 1.50 (H) 0 - 0.80 K/UL [facility] Monocyte Count Absolute 0.10 0 - 0.45 K/UL [facility] Eosinophil Count Absolute 0.10 0 - 0.20 K/UL [facility] Basophil Count Specimen Blood Performing Organization Address [facility] Phone Number [facility] [address] [place] [address] * C REACTIVE PROTEIN (CRP) (11/17/2018 9:10 AM CDT) C-Reactive 0.30 <1.0 MG/DL [facility] Protein Specimen Blood Performing Organization Address [facility] Phone Number [facility] [address] [place] [address] * LDH-LACTATE DEHYDROGENASE (11/17/2018 9:10 AM CDT) Lactate 325 (H) 100 - 210 U/L [facility] Dehydrogenase Specimen Blood Performing Organization Address [facility] Phone Number [facility] [address] [place] [address] * HEMOGLOBIN A1C (11/17/2018 9:10 AM CDT) Hemoglobin A1C 6.9 (H) 4.0 - 6.0 % [facility] Comment: The ADA recommends that most patients with type 1 and type 2 diabetes maintain an A1c level <7%. Specimen Blood Performing Organization Address [facility]/Zipcode Phone Number [facility] [address] [place] [address] * COMPREHENSIVE METABOLIC PANEL (11/17/2018 9:10 AM CDT) Sodium 138 137 - 147 MMOL/L [facility] Potassium 3.6 3.5 - 5.1 MMOL/L [facility] Chloride 103 98 - 110 MMOL/L [facility] Glucose 105 (H) 70 - 100 MG/DL [facility] Blood Urea 79 (H) 7 - 25 MG/DL [facility] Nitrogen Creatinine 3.48 (H) 0.4 - 1.24 MG/DL [facility] Calcium 7.6 (L) 8.5 - 10.6 MG/DL [facility] Total Protein 4.0 (L) 6.0 - 8.0 G/DL [facility] Total Bilirubin 0.3 0.3 - 1.2 MG/DL [facility] Albumin 2.2 (L) 3.5 - 5.0 G/DL [facility] Alk Phosphatase 84 25 - 110 U/L [facility] AST (SGOT) 23 7 - 40 U/L [facility] CO2 27 21 - 30 MMOL/L [facility] ALT (SGPT) 21 7 - 56 U/L [facility] Anion Gap 8 3 - 12 [facility] eGFR Non 18 (L) >60 mL/min [facility] Comment: [place] The eGFR is not validated for use in drug dosing adjustments.Continue to use estimated creatinine clearance per dosing reference text.Please contact the Clinical Pharmacist for questions. eGFR 21 (L) >60 mL/min [facility] [place] Comment: The eGFR is not validated for use in drug dosing adjustments.Continue to use estimated creatinine clearance per dosing reference text.Please contact the Clinical Pharmacist for questions. Specimen Blood Performing Organization Address City/State/Zipcode Phone Number [facility] [address] [place] [address] * POC URINE DIPSTICK AUTO READ (11/17/2018) Urine Glucose norm IN CLINIC POC Urine Bilirubin neg IN CLINIC POC Urine Ketone neg IN CLINIC POC Urine Specific 1.015 IN CLINIC [place] POC Urine Blood POC neg IN CLINIC Urine PH POC 5 IN CLINIC Urine Protein 500 IN CLINIC POC Urine norm IN CLINIC Urobilinogen POC Urine Nitrite neg IN CLINIC POC Urine neg IN CLINIC Leukocytes POC Color,UA IN CLINIC Turbidity,UA IN CLINIC Specimen Urine - Urine Performing Organization Address [facility] Phone Number IN CLINIC * [facility] TEST (10/26/2018 1:30 PM CDT) Pathologist [facility] Ref Lab Test [id number], Troponin T REFERENCE LAB Code REF LAB RESULT SEE NOTE REFERENCE LAB (MSAR) Test name Result Flag UnitsRefIntvl - Troponin-T 0.11 H ng/mL <=0.01 Performed by [facility] [employer], [address] [place] [id number] [email or web address], Matthew Moy MD, Lab. Director Performing Organization Address [facility] Phone Number REFERENCE LAB REFERENCE LAB See results for address. * [facility] TEST (10/26/2018 1:30 PM CDT) Pathologist [facility] PBNP, NT Pro BNP, S REFERENCE LAB Miscellaneous Test Info [place] SEE COMMENTS 10/27/2018 11:15 REFERENCE LAB Miscellaneous AM Result Test ResultFlag Unit RefValue ------ NT-Pro BNP, S >75942 Hpg/mL<=95 NT-proBNP values less than 300 pg/mL have a 99% negative predictive value for excluding acute congestive heart failure. A cutoff of 1200 pg/mL for patients with an eGFR<60 yields a diagnostic sensitivity and specificity of 89% and 72% for acute congestive heart failure.A diagnostic NT-proBNP cutoff of 900 pg/mL has been suggested in adults 50-75 years of age in the absence of renal failure. Test Performed by: [facility] - [address] [address] Performing Organization Address City/[facility] Phone Number REFERENCE LAB REFERENCE LAB See results for address. * [facility] (10/26/2018 1:30 PM CDT) Only the most recent of 2 results within the time period is included. Test Troponin T REFERENCE LAB Reference Lab PERFORMED AT [facility] REFERENCE LAB LABORATORY-FOR REF RANGE SEE REPORT. Results Ref Lab SEE REF LAB RESULT REFERENCE LAB Specimen Mail [facility]ENCE [facility] Performing Organization Address City/State/Zipcode Phone Number REFERENCE LAB REFERENCE LAB See results for address. * OUTSIDE PATHOLOGY CONSULT (10/05/2018 11:16 AM LINE SERVICE PERSON) Only the most recent of 2 results within the time period is included. PATHOLOGY [facility] [place] [facility] [email or web address] Department of Pathology and Laboratory Medicine [address] [place] [address] Surgical Pathology Office:[phone] :[phone] PATHOLOGY CONSULTATION NAME: LÓPEZ RODRÍGUEZ SURG PATH #: [id number] MR #: [id number] ALT ID #: LOCATION: [facility] DATE OF PROCEDURE: 10/05/2018 AGE:67 SEX: M DATE RECEIVED: 10/05/2018 : 1950TIME RECEIVED:11:16 PHYSICIAN: Marcela Rocha MD DATE OF REPORT: 10/12/2018 COPY TO:DATE OF PRINTIN10/12/2018 OUTSIDE INSTITUTION: [place] [address] [place] [address] [place] [address] P: [phone] F: [phone] ############################## ############################## ############ Final Diagnosis: A. Outside case "[id number]" (Date collected: 08/30/18): 1. AL (LAMBDA) AMYLOIDOSIS. 2. ACUTE TUBULAR INJURY. SEE COMMENT AND DESCRIPTION. COMMENT: The biopsy shows congophilic deposits consistent with amyloid within glomeruli and small vessels. The deposits show lambda light chain-restricted staining, consistent with AL-lambda type amyloidosis. There is also tubular injury, moderate interstitial fibrosis and tubular atrophy, and moderate arteriosclerosis. Attestation: By this signature, I attest that I have personally formulated the final interpretation expressed in this report and that the above diagnosis is based upon my examination of the slides and/or other material indicated in this report. +++ +++ w/10/05/2018 ############################## ############################## ############ Material Received: A: Outside Slides x5 [id number] [place] [id number] [place] [address] History: 67 year-old male. Outside kidney biopsy taken on 08/30/2018 read as follows: Renal Amyloidosis, AL-Type Acute Tubular Necrosis Global Glomerulosclerosis (10/36) Interstitial Fibrosis (40-50%) and Tubular Atrophy (35-40%) Moderate Arterio- and Arteriolosclerosis Gross Description: A. Received are five (5) outside slides, a CD, and a report labeled "[id number]". [facility]10/05/2018 Microscopic Description: LIGHT MICROSCOPY REPORT: Sections of [place] kidney core biopsy stained by periodic acid-Royal, Archer' methenamine silver, and Marty trichrome methods reveal 2 cores of renal tissue. An H&E stain was also performed but was not included in the slides sent. Up to 24 glomeruli per panel are available for evaluation, of which 5 are globally sclerotic. Glomeruli show segmental mild mesangial expansion by amorphous material without significant hypercellularity. The eosinophilic, amorphous material stains lightly for PAS and stains for Congo red, showing characteristic birefringence when viewed under polarized light, consistent with amyloid. Most of the deposits are in mesangium, but a few deposits involve glomerular capillary loops and are accompanied by segmental basement membrane inhomogeneity on silver stain. There are focal deposits in Guaman's capsule, sclerotic glomeruli, and arterioles and rare small interstitial deposits. There is no glomerular inflammation, thrombosis, tuft necrosis, or crescent formation. There is moderate interstitial fibrosis and tubular atrophy ( 40%) and patchy mild to moderate mononuclear interstitial inflammation that is especially prominent in subcapsular cortex. Tubular epithelial cells show focal flattening and reactive change. Other tubular epithelial cells contain resorption droplets. Sloughed cells and cellular debris are present in a few tubules. Scattered casts are present. No fractured casts or associated intratubular multi-nucleated cells are present. An immunostain for myoglobin is also included with the slides and is negative. Arteries show moderate intimal fibrosis, and arterioles show mild hyalinosis, in addition to the focal amyloid mentioned above. No arteritis is present. IMMUNOFLUORESCENCE REPORT: Images for the following stains are included: IgG, C3, IgM, kappa, and lambda. Glomerular mesangial and focal vascular deposits stain for lambda without significant kappa, IgG, or C3. There is minimal segmental staining of glomeruli for IgM. Casts reportedly stain equally for kappa and lambda. ELECTRON MICROSCOPY REPORT: Images included show electron dense deposits with a random, non-branching, fibrillar substructure within mesangium and rare, similar subendothelial deposits. There is diffuse foot process effacement. No tubular basement membrane deposits are present. If immunohistochemical stains and/or in situ hybridization are cited in this report, the performance characteristics were determined by the Department of Pathology and Laboratory Medicine of the [facility] ([employer] [facility]) in compliance with CLIA'88 regulations.Some of these tests rely on the use of "analyte specific reagents" and are subject to specific labeling requirements by the FDA. Known positive and negative control tissues demonstrate appropriate staining.Results should be interpreted with caution given the likelihood of false negativity on decalcified specimens.This testing was developed by the Department of Pathology and Laboratory Medicine of the [facility].It has not been cleared or approved by the FDA.The FDA has determined that such clearance or approval is not necessary. Performing Organization Address City/State/Zipcode Phone Number [facility] [address] [place] [address] * PATHOLOGY REPORTS FROM OUTSIDE SCAN (10/05/2018 12:00 AM LINE SERVICE PERSON) Only the most recent of 2 results within the time period is included. Narrative Performed At Ordered by an unspecified provider. * GENERAL RAD [facility] EXTERNAL IMAGING (09/15/2018 9:50 AM LINE SERVICE PERSON) Narrative Performed At This order has been auto finalized and does not contain a result. * CT MISC EXTERNAL IMAGING (08/30/2018 11:15 AM LINE SERVICE PERSON) Narrative Performed At This order has been auto finalized and does not contain a result. * GENERAL RAD CHEST EXTERNAL IMAGING (08/23/2018 3:00 PM LINE SERVICE PERSON) Only the most recent of 2 results within the time period is included. Narrative Performed At This order has been auto finalized and does not contain a result. from Last 3 Months Insurance Type Payer Benefit Subscriber ID Effective Phone Address Plan / Dates Group Medicare MEDICARE MEDICARE xxxxxxxxxxx 2015-P PART A resent HMO CIGNA CIGNA NON xxxxxxxxxxx 2018-P PPO/EPO resent Advance Directives Patient has advance care planning documents on file. For more information, please contact: [facility] [address] [place] [address]
[2018-11-18 11:17] LABS: AMORPHOUS SEDIMENT,UR MOD AMOR PHOSPHATE /LPF; HYALINE CASTS, URINE 0-2 /LPF
--- OUTSIDE RECORDS SUMMARY | 2018-11-18 11:17 | XMS REPORT | Encounter Summary ---
Author Author [facility] Organization [facility] Address Unknown Phone Unavailable Care Team Providers Care Window Trimmer Apprentice Name Role Phone Nicole Weir MD 21 Augusto Elkins MD PCP Reason for Visit * Reason Comments Cardiac Eval Amyloidosis New Patient Encounter Details Care Team Description Date Type Department West Bernal MD [address] [facility] [id number] [place], [place] [id number] Cardiac Eval (Amyloidosis); New Patient 11/17/2018 Office Visit [facility] [address] [facility] [id number] [place], [place] [id number] Social History Date Tobacco Use Types Packs/Day [...] Signs Time Taken Vital Sign Reading 11/17/2018 11:03 AM CDT Blood Pressure 112/80 11/17/2018 11:03 AM CDT Pulse 69 - Temperature - - Respiratory Rate - - Oxygen Saturation - - Inhaled Oxygen - Concentration 11/17/2018 11:03 AM CDT Weight 105.2 kg (232 lb) 11/17/2018 11:03 AM CDT Height 175.3 cm (5' 9") 11/17/2018 11:03 AM CDT Body Mass Index 34.26 documented in this encounter Patient Instructions * Patient Instructions* West Bernal MD - 11/17/2018 10:30 AM CDT There are 2 main issues we have to deal with and sorting out whether your heart can stand the stress of a bone marrow transplant. First of all we need you to have a nuclear stress test to determine how how much if any heart muscle is now in jeopardy because of blockages that have developed since your cardiac cath looked good 3 or 4 years ago. I prefer that you do this here so we can see the results and not just get a piece of paper to read about what was found. Secondly we need to determine the extent of amyloid infiltration into your heart muscle. There is some thickening in the heart muscle that could be due to high blood pressure. We need an echocardiogram that will help show strain on the heart in a manner that was not determined on your first echo. We also need to have a special heart study called cardiac magnetic resonance imaging to show wall thickness and give us a better idea about amyloid infiltration into the heart. We can also do special imaging with the CMR looking at the strain on the heart. The strain on the heart changes in a particular manner when you have amyloid tissue infiltrating into the heart muscle. This will help us understand exactly what challenges your heart will have if you underdo a bone marrow transplant. If your cardiac MRI scan is to be done today that is good news. The one thing they need to know is that because of your kidney function we will not be wanting to have you get document review specialist called gadolinium as that can cause really major complications if it is given to people whose kidneys cannot clear it very well. I am not sure how long it will take to get the nuclear scan of the echo done. We will do our best to get these scheduled quickly and at a time that matches your other trips to [place]. Not going to change any of your fluid medications as you have other doctors closer to home overseeing this. I can tell you that you probably have enough problem with low albumin as a cause of the massive leg edema that trying to give a higher and higher doses of furosemide or metolazone by itself will never clear the edema. documented in this encounter Progress Notes * West Bernal MD - 11/17/2018 10:30 AM CDT Date of Service: 11/17/2018 Henry Wilson is a 68 y.o. male. HPI Mr. Wilson presents for cardiovascular evaluation as he is being assessed for a autologous bone marrow transplant as therapy for AL amyloid in the absence of a diagnosis of multiple myeloma. He is accompanied by his . His symptoms of swelling and fatigue began in July. He was evaluated by his primary care physician who noted renal dysfunction. He was admitted to [facility] for nearly a 2-week assessment. He had a biopsy then that showed AL amyloid after evaluation of the tissue at [facility]. He had an echocardiogram on August 20, 2018 that showed EF 55% with septal hypertrophy wall thickness greater than 2 cm but normal posterior wall thickness at about 1 cm. There was no significant valve disease. He thinks his tongue may be a little thicker than it has been he notes that he notes that he has bitten it more often recently. He thinks he may have had some imprinting of his teeth into his tongue recently although it is not been a prominent lead notable event. He has no chest pain although he did have chest pain at the time he had presented for what turned out to be an admission for cath in 2014 or . He cannot recall the last time he took nitro he does have progressive fatigue and shortness of breath. This basically began in mid July 2018 at about the time his evaluation with fatigue and renal dysfunction began. He has had progressive edema since then as well and now has a skin breakdown particularly on the right and wraps up to the knee. The edema now extends over the thighs. He has exercise intolerance with fatigue and shortness of breath. 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 This was done there because his daughter lives at [place]. He also had a stent placed that he described as being a position in the right groin. This was done in association with his cardiac workup initially. He has had no focal motor defects or other symptoms that would suggest TIA. He specifically denies having any sense of cardiac rate or rhythm abnormality and no sense that his heart is beating in any manner that is different than in the past. Because of the tissue pressure problems created by physical activity with his bilateral weeping leg wounds his wound therapist has told him not to try to do walking which had been recommended by the rest of his care team in order to maintain his stamina. He is now essentially sedentary. His electrolytes are satisfactory today with borderline low potassium. He is a renal function is significantly impaired although there is some evidence of prerenal azotemia with BUN 79. The creatinine is 2 high to allow him to have gadolinium with his cardiac MR scan. His albumin is significantly reduced and can be contributing to his diffuse lower extremity edema. 11/17/2018 09:10 Sodium 138 Potassium 3.6 Chloride 103 CO2 27 Anion Gap 8 Blood Urea Nitrogen 79 (H) Creatinine 3.48 (H) eGFR Non 18 (L) Glucose 105 (H) Albumin 2.2 (L) Calcium 7.6 (L) Total Bilirubin 0.3 Total Protein 4.0 (L) Vitals: 11/17/18 1103 BP: 112/80 Pulse: 69 Weight: 105.2 kg (232 lb) Height: 1.753 m (5' 9") Body mass index is 34.26 kg/m. 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) 10/26/2018 Peripheral vascular disease ([facility]) 10/26/2018 Peripheral edema 10/26/2018 Ulcers of both lower extremities, limited to breakdown of skin ([facility]) 2018 Review of Systems Constitution: Positive for chills, decreased appetite, malaise/fatigue and weight gain. HENT: Positive for hearing loss and tinnitus. Eyes: Positive for blurred vision. Cardiovascular: Positive for dyspnea on exertion, orthopnea and paroxysmal nocturnal dyspnea. Respiratory: Positive for shortness of breath and sleep disturbances due to breathing. Endocrine: Positive for polydipsia. Hematologic/Lymphatic: Bruises/bleeds easily. Skin: Positive for color change and poor wound healing. Musculoskeletal: Negative. Gastrointestinal: Positive for dysphagia. Genitourinary: Positive for decreased libido. Neurological: Positive for excessive daytime sleepiness and dizziness. Psychiatric/Behavioral: Negative. Allergic/Immunologic: Negative. All other systems reviewed and are negative. Physical Exam General: Patient in no distress, looks somewhat chronically ill.. Skin warm and dry. Mucous membranes moist. He may have mild macroglossia. Clear-cut imprinting of his teeth on the tone is not evident. Eyes: Sclera non icteric, Pupils equal and round Carotids: no bruits Thyroid not enlarged. Neck veins: CVP is clearly elevated greater than 8 to 10cm. There is a V wave. I do not see hepatojugular reflux. Respiratory: Breathing comfortably. Lungs clear to percussion & auscultation. No rales, rhonchi or wheezing Cardiac: Regular rhythm. LV impulse not palpable. Normal S1 & S2, Fourth heart sound, no rub or S3. No murmur Abdomen: soft, non-tender, no masses,bruits,hepatic or aortic enlargement. + bowel sounds. Femoral arteries: Good pulses, no bruits. Legs/feet: Pulses are obscured by edema. He has a diffuse edema extending to the groin motor: Normal muscle strength. Slowly to the exam table. Cognitive: Pleasant demeanor. Good insight. No depression CVP 8+ V, Edema to groin. Cardiovascular Studies EKG today shows sinus rhythm rate 69 left atrial enlargement diffuse low voltage with T wave flattening. Problems Addressed Today No diagnosis found. Assessment and Plan Mr. Wilson has an echocardiogram in August that could be consistent with hypertension in a 68-year-old. He it we do not have information about LV strain. Is assessment is cardiac candidate for the BMT will require a Regadenoson Thallium thallium scan to be certain that he does not have occult myocardial ischemia which could present with unstable angina or ischemia mediated LV dysfunction early post transplant. We cannot going to this not knowing what his ischemic burden might be. His exercise capacity is too low to be reassured by the absence of angina even though he was working fairly vigorously through the end of July 2018. Managing large degree of ischemic burden will be a separate issue given his renal insufficiency and is on lack of symptoms of angina. Basically I think a favorable thallium scan with low ischemic burden would be very helpful in proceeding with other assessments for his transplant. If he has a high risk scan the implications regarding his BMT and management options will need to be discussed. The prior echo in August does not give sufficient information about cardiac involvement with amyloid to use as a another indicator of his risk with the bone marrow transplant. Cardiac amyloid is a bad prognostic finding in in assessing outcomes after a BMT so we need further definition. I recommend that he have another echo Doppler done that will allow us to determine LV strain pattern at this point. This if he this would be important baseline marker if he does go through transplant to see if there is any improvement in LV strain pattern with time. He has been on furosemide 40 mg daily by the direction of Dr. Olena Moseley MD [place] nephrology compliance consultant several months ago with metolazone 2.5 mg every other day started about 3 weeks ago by their recollection Cardiac evaluation should also include CMR with cardiac myostrain package. His renal insufficiency makes imaging with gadolinium excessively hazardous because of the risk of nephrogenic systemic fibrosis associated with gadolinium in patients with renal dysfunction. He is on Coreg presumably for hypertension as he has no recollection of being treated for LV dysfunction. He is also on Imdur which is at a low dose. This may have been prescribed after he presented with chest pain and had a favorable cath in about 2015. His venous pressure looks elevated. I do not think that vigorous diuresis is going to meaningfully eradicate his edema since he has profound hypoalbuminemia with an albumin at 2.2. I am certain that he has a significant contributor to his edema from the hypoalbuminemia since massive edema like this in the absence of pulmonary edema has to be attributable to something other than cardiac edema. His blood pressure is satisfactory. NB: The free text in this document was generated through [employer] software with editing and proofreading done by the author of this document Dr. West Bernal MD, [facility] principally at the point of care. Some errors may persist. If there are questions about content in this document please contact Dr. Bernal. The written information I provided Mr. Wilson at the conclusion of today's encounter is as follows: Patient Instructions There are 2 main issues we have to deal with and sorting out whether your heart can stand the stress of a bone marrow transplant. First of all we need you to have a nuclear stress test to determine how how much if any heart muscle is now in jeopardy because of blockages that have developed since your cardiac cath looked good 3 or 4 years ago. I prefer that you do that appears so we can see the results and not just get a piece of paper to read about what was found. Secondly we need to determine the extent of amyloid infiltration into your heart muscle. He has some thickening in the heart muscle that could be due to high blood pressure. We need an echocardiogram that will help show strain on the heart in a manner that was not determined on your first echo. We also need to have a special heart study called card and it cardiac magnetic resonance imaging to show wall thickness and give us a better idea about amyloid infiltration into the heart. We can also do special imaging with the CMR looking at the strain on the heart. The strain on the heart changes in a particular manner when you have amyloid tissue infiltrating into the heart muscle. This will help us understand exactly what challenges your heart will have if you underdo a bone marrow transplant. If your cardiac MRI scan is to be done today that is good news. The one thing they need to know is that because of your kidney function we will not be wanting to have you get document review specialist called gadolinium as that can cause really major complications if it is given to people whose kidneys cannot clear it very well. I am not sure how long it will take to get the nuclear scan of the echo done. We will do our best to get these scheduled quickly and at a time that matches your other trips to [place]. Not going to change any of your fluid medications as you have other doctors closer to home overseeing this. I can tell you that you probably have enough problem with low albumin as a cause of the massive leg edema that trying to give a higher and higher doses of furosemide or metolazone by itself will never clear the edema. Current Medications (including today's revisions) acyclovir (ZOVIRAX) 200 mg capsule Take 200 mg by mouth twice daily. aspirin EC 81 mg tablet Take 81 mg by mouth daily. atorvastatin (LIPITOR) 40 mg tablet Take 40 mg by mouth daily with dinner. carvedilol (COREG) 6.25 mg tablet Take 6.25 mg by mouth twice daily. cyclophosphamide (CYTOXAN) 50 mg capsule Take 650 mg by mouth every 7 days. dexamethasone (DECADRON) 4 mg tablet Take 40 mg by mouth every 7 days. ergocalciferol (VITAMIN D-2) 50,000 unit capsule Take 1 capsule by mouth every 7 days. For 12 weeks fluticasone (FLONASE) 50 mcg/actuation nasal spray Apply 2 sprays to each nostril as directed daily. furosemide (LASIX) 40 mg tablet Take 40 mg by mouth every 24 hours as needed. insulin glargine (LANTUS) 100 unit/mL injection Inject 5 Units under the skin at bedtime daily. insulin lispro(+) (HUMALOG KWIKPEN) 100 unit/mL injection PEN CORRECTIONAL Dose, Medium-dose Regimen for Blood Sugars: Less than or equal to 140=no correctional insulin 141 - 180=give and/or add 2 unit 181 - 220=give and/or add 5 units 221 - 280=give and/or add 8 units If glucose greater than 250 on two consecutive readings or greater than 300 once notify provider. 281 - 340=give and/or add 11 units Greater than 3... insulin lispro(+) (HUMALOG) 100 unit/mL injection Inject 8 Units under the skin three times daily with meals. isosorbide mononitrate SR (IMDUR) 30 mg tablet Take 30 mg by mouth daily. metOLazone (ZAROXOLYN) 2.5 mg tablet nitroglycerin (NITROSTAT) 0.4 mg tablet Prn . ondansetron (ZOFRAN ODT) 4 mg rapid dissolve tablet Dissolve 4 mg by mouth every 24 hours as needed. pantoprazole DR (PROTONIX) 20 mg tablet Take 20 mg by mouth daily. prochlorperazine maleate (COMPAZINE) 10 mg tablet Take 10 mg by mouth every 24 hours as needed. documented in this encounter Plan of Treatment Order Schedule Name Priority Associated Diagnoses Ordered: 11/17/2018 ECG 12-LEAD Routine AL amyloidosis (HCC) documented as of this encounter Visit Diagnoses Diagnosis AL amyloidosis (HCC) - Primary Other amyloidosis S/P CABG (coronary artery bypass graft) Postsurgical aortocoronary bypass status Light chain (AL) amyloidosis (HCC) Stage 5 chronic kidney disease not on chronic dialysis (HCC) Peripheral edema Edema Ulcers of both lower extremities, limited to breakdown of skin (HCC) Ventricular hypertrophy determined by echocardiography Preop cardiovascular exam Pre-operative cardiovascular examination documented in this encounter
--- OUTSIDE RECORDS SUMMARY | 2018-11-18 11:17 | XMS REPORT | Encounter Summary ---
Author Author [facility] Organization [facility] Address Unknown Phone Unavailable Care Team Providers Care Multiple Drum Sander Helper Name Role Phone Nicole Weir MD 21 Augusto Elkins MD PCP Reason for Visit * Reason Comments Labs Only Encounter Details Care Team Description Date Type Department Domenic Gutiérrez MD [address] [id number] 10/26/2018 Lab Only [facility] [address] [place] [address] Social History Date Tobacco Use Types Packs/Day [...] Not on filedocumented as of this encounter Visit Diagnoses Not on filedocumented in this encounter
--- OUTSIDE RECORDS SUMMARY | 2018-11-18 11:17 | XMS REPORT | Encounter Summary ---
Author Author [facility] Organization [facility] Address Unknown Phone Unavailable Care Team Providers Care Hydraulic Elevator Constructor Name Role Phone Nicole Weir MD 21 Augusto Elkins MD PCP Encounter Details Care Team Description Date Type Department Barbie Coffey RN Light chain (AL) amyloidosis (HCC) (Primary Dx) 10/26/2018 Orders Only [facility] [address] [place], [place] [id number] Social History Date Tobacco Use Types Packs/Day [...] filedocumented as of this encounter Visit Diagnoses Diagnosis Light chain (AL) amyloidosis (HCC) - Primary documented in this encounter
--- OUTSIDE RECORDS SUMMARY | 2018-11-18 11:17 | XMS REPORT | Encounter Summary ---
Author Author [facility] Organization [facility] Address Unknown Phone Unavailable Care Team Providers Care Institutional Research Director Name Role Phone Nicole Weir MD 21 Augusto Elkins MD PCP Reason for Referral * Radiology Services (Routine) Referred By Contact Referred To Contact Status Reason Specialty Diagnoses / Procedures Domenic Gutiérrez MD [address] [place] [address] b Mri [address] [place] [address] No Auth Needed Radiology Diagnoses Light chain (AL) amyloidosis (HCC) P rocedures MRI CARD MORPH FXN WO/W * Radiology Services (Routine) Referred By Contact Referred To Contact Status Reason Specialty Diagnoses / Procedures Domenic Gutiérrez MD [address] [place] [address] Bhb [facility] [address] [place] [address] No Auth Needed Radiology Diagnoses Light chain (AL) amyloidosis (HCC) P rocedures MRI CARD MORPH FXN WO/W Reason for Visit * Radiology Services (Routine) Referred By Contact Referred To Contact Status Reason Specialty Diagnoses / Procedures Domenic Gutiérrez MD [address] [place] [address] [facility] [address] [place] [address] No Auth Needed Radiology Diagnoses Light chain (AL) amyloidosis (HCC) P rocedures MRI CARD MORPH FXN WO/W Encounter Details Care Team Description Date Type Department Domenic Gutiérrez MD [address] [facility] [place], [place] [id number] Canceled (Patient-Personal) 11/17/2018 Hospital [facility] [address] [place], [place] [id number] Social History Date Tobacco Use Types Packs/Day [...] Treatment Order Schedule Name Priority Associated Diagnoses 1 Occurrences starting 11/17/2018 until 11/17/2018 MRI CARD MORPH FXN WO/W Routine Light chain (AL) amyloidosis (HCC) documented as of this encounter Visit Diagnoses Diagnosis Light chain (AL) amyloidosis (HCC) documented in this encounter
--- OUTSIDE RECORDS SUMMARY | 2018-11-18 11:17 | XMS REPORT | Encounter Summary ---
Author Author [facility] Organization [facility] Address Unknown Phone Unavailable Care Team Providers Care Street Light Servicer Helper Name Role Phone Nicole Weir MD 21 Augusto Elkins MD PCP Encounter Details Care Team Description Date Type Department Penelope Hill RN 10/26/2018 Documentation [facility] [address] [place] [address] [place] [id number] Social History Date Tobacco Use Types Packs/Day [...] history available. documented as of this encounter Progress Notes * Penelope Hill, RN - 10/26/2018 12:34 PM CDT Henry Wilson is a 68 y.o. male in initial consultation with Dr. Gutiérrez. , son, daughter accompanied patient. Diagnosis: Renal Amyloidosis Date of diagnosis: 08/30/18 Cytogenetics/FISH at diagnosis: Kidney BX: The biopsy displays amyloid deposition within glomeruli and vasculature. Immunofluorescence microscopy shows that the deposits restrict for lambda light chain, compatible with AL- type amyloidosis. BMBX: Flow: 1% monoclonal lambda plasma cells Cyto: 46,XY[20] FISH: negative Pertinent medical/surgical hx: Medical Hx: Diabetes type 2, CAD, CH, CKD, HTN, hyperlipidemia Surgical Hx: Carpal tunnel release, cataract removal, coronary artery bypass graft Referring physician/phone: Dr. Nicole Weir FACILITY: [facility] CONTACT NAME: Muna PHONE: [phone] Prior therapy: none Current therapy: C2D1 CTX 10/25/18 (28 day cycles) Plan: Will evaluate for auto HSCT with Melphalan, admit on Day 0. Patient currently receiving care for open wounds on legs that are weeping in [place], [place]. Would not proceed with testing until wounds have healed. Patient would plan to stay with daughter in [place] during eval/collection/post discharge. Testing: All standard pre-transplant evaluation testing, including nephrology and cardiology consults, stress test, cardiac MRI. Will draw pro BNP, troponin today. Research/studies: na at this time Donor Options (if applicable): na at this time; pt has 3 children. Social Situation: Pt works for [email or web address], lives in [place] with his . Pt has history of smoking, but quit in 2003. Insurance: [employer]/Medicare Pretransplant Coordinator: Barbie Coffey RN NEWS Score: 0 Last Mammogram (Date/where) na Last Colonoscopy (date) Not asked I have reviewed the distress thermometer and needs assessment, including physical, psychological, social, spiritual and behavioral needs. The patient completed the assessment during this visit to identify psychosocial needs that may interfere with the patient's plan of care. I have made the following referrals based on this assessment and discussion with the patient: Social Work and Financial Counselor Copies of transplant informational materials, consents, and coordinator contact information given to patient. Penelope Hill RN documented in this encounter Plan of Treatment Not on filedocumented as of this encounter Visit Diagnoses Not on filedocumented in this encounter
--- OUTSIDE RECORDS SUMMARY | 2018-11-18 11:17 | XMS REPORT | Encounter Summary ---
Author Author [facility] Address Unknown Phone Unavailable Care Team Providers Care Customer Project Manager Name Role Phone Nicole Weir MD 21 Augusto Elkins MD PCP Reason for Visit * Reason Comments Labs Only Encounter Details Care Team Description Date Type Department Domenic Gutiérrez MD [address] [place] [address] Type 2 diabetes mellitus without complication, unspecified whether penitentiary insulin use (HCC) ; Light chain (AL) amyloidosis (HCC) 11/17/2018 Lab Only [facility] [place] [phone] Social History Date Tobacco Use Types Packs/Day [...] as of this encounter Plan of Treatment Date/Time Name Priority Associated Diagnoses 11/17/2018 9:10 AM CDT IMMUNOFIXATION, SERUM (IFES) Routine Light chain (AL) amyloidosis (HCC) documented as of this encounter Procedures Comments Procedure Name Priority Date/Time Associated Diagnosis KAPPA/LAMBDA FREE LIGHT Routine 11/17/2018 Light chain (AL) CHAINS 9:10 AM CDT amyloidosis (HCC) CBC AND DIFF Routine 11/17/2018 Light chain (AL) 9:10 AM CDT amyloidosis (HCC) C REACTIVE PROTEIN (CRP) Routine 11/17/2018 Light chain (AL) 9:10 AM CDT amyloidosis (HCC) LDH-LACTATE DEHYDROGENASE Routine 11/17/2018 Light chain (AL) 9:10 AM CDT amyloidosis (HCC) HEMOGLOBIN A1C Routine 11/17/2018 Type 2 diabetes mellitus 9:10 AM CDT without complication, unspecified whether penitentiary insulin use (HCC) Light chain (AL) amyloidosis (HCC) COMPREHENSIVE METABOLIC Routine 11/17/2018 Light chain (AL) PANEL 9:10 AM CDT amyloidosis (HCC) documented in this encounter Results * LDH-LACTATE DEHYDROGENASE (11/17/2018 9:10 AM CDT) Lactate 325 (H) 100 - 210 U/L [facility] Dehydrogenase Specimen Blood Performing Organization Address [facility] Phone Number [facility] [address] [place] [address] * KAPPA/LAMBDA FREE LIGHT CHAINS (11/17/2018 9:10 AM CDT) [place], FLC 3.00 (H) 0.33 - 1.94 MG/DL [facility] Lambda, FLC 2.95 (H) 0.57 - 2.63 MG/DL MAIN LAB [place]/Lambda 1.02 0.26 - 1.65 [facility] FLC Specimen Blood Performing Organization Address [facility] Phone Number [facility] [address] [place] [address] * C REACTIVE PROTEIN (CRP) (11/17/2018 9:10 AM CDT) C-Reactive 0.30 <1.0 MG/DL MAIN LAB Protein Specimen Blood Performing Organization Address [facility] Phone Number [facility] [address] [place] [address] * CBC AND DIFF (11/17/2018 9:10 AM CDT) White Blood 10.6 4.5 - 11.0 K/UL [facility] Cells RBC 3.44 (L) 4.4 - 5.5 M/UL [facility] Hemoglobin 10.2 (L) 13.5 - 16.5 GM/DL [facility] Hematocrit 29.0 (L) 40 - 50 % [facility] MCV 84.3 80 - 100 FL [facility] MCH 29.5 26 - 34 PG [facility] MCHC 35.0 32.0 - 36.0 G/DL [facility] RDW 20.6 (H) 11 - 15 % [facility] Platelet Count 124 (L) 150 - 400 K/UL [facility] MPV 8.3 7 - 11 FL [facility] Neutrophils 75 41 - 77 % [facility] Lymphocytes 9 (L) 24 - 44 % [facility] Monocytes 14 (H) 4 - 12 % [facility] Eosinophils 1 0 - 5 % [facility] Basophils 1 0 - 2 % [facility] Absolute 8.00 (H) 1.8 - 7.0 K/UL [facility] Neutrophil Count Absolute Lymph 1.00 1.0 - 4.8 K/UL [facility] Count Absolute 1.50 (H) 0 - 0.80 K/UL [facility] Monocyte Count Absolute 0.10 0 - 0.45 K/UL [facility] Eosinophil Count Absolute 0.10 0 - 0.20 K/UL [facility] Basophil Count Specimen Blood Performing Organization Address City/State/Zipcode Phone Number [facility] [address] [place] [address] * COMPREHENSIVE METABOLIC PANEL (11/17/2018 9:10 AM CDT) Sodium 138 137 - 147 MMOL/L [facility] Potassium 3.6 3.5 - 5.1 MMOL/L [facility] Chloride 103 98 - 110 MMOL/L [facility] Glucose 105 (H) 70 - 100 MG/DL [facility] Blood Urea 79 (H) 7 - 25 MG/DL [facility] Nitrogen Creatinine 3.48 (H) 0.4 - 1.24 MG/DL [facility] Calcium 7.6 (L) 8.5 - 10.6 MG/DL [facility] Total Protein 4.0 (L) 6.0 - 8.0 G/DL [facility] Total Bilirubin 0.3 0.3 - 1.2 MG/DL [facility] Albumin 2.2 (L) 3.5 - 5.0 G/DL [facility] Alk Phosphatase 84 25 - 110 U/L [facility] AST (SGOT) 23 7 - 40 U/L [facility] CO2 27 21 - 30 MMOL/L [facility] ALT (SGPT) 21 7 - 56 U/L [facility] Anion Gap 8 3 - 12 [facility] eGFR Non 18 (L) >60 mL/min [facility] Comment: Greenlandic The eGFR is not validated for use in drug dosing adjustments.Continue to use estimated creatinine clearance per dosing reference text.Please contact the Clinical Pharmacist for questions. eGFR 21 (L) >60 mL/min [facility] Greenlandic Comment: The eGFR is not validated for use in drug dosing adjustments.Continue to use estimated creatinine clearance per dosing reference text.Please contact the Clinical Pharmacist for questions. Specimen Blood Performing Organization Address City/State/Zipcode Phone Number [facility] [address] [place] [address] * HEMOGLOBIN A1C (11/17/2018 9:10 AM CDT) Hemoglobin A1C 6.9 (H) 4.0 - 6.0 % [facility] Comment: The ADA recommends that most patients with type 1 and type 2 diabetes maintain an A1c level <7%. Specimen Blood Performing Organization Address City/State/Zipcode Phone Number [facility] [address] [place] [address] documented in this encounter Visit Diagnoses Diagnosis Type 2 diabetes mellitus without complication, unspecified whether salvage determiner insulin use (HCC) Light chain (AL) amyloidosis (HCC) documented in this encounter
--- OUTSIDE RECORDS SUMMARY | 2018-11-18 11:17 | XMS REPORT | Encounter Summary ---
Author Author [facility] Organization [facility] Address Unknown Phone Unavailable Care Team Providers Care Retort Fireman Name Role Phone Nicole Weir MD 21 Augusto Elkins MD PCP Reason for Visit * Reason Comments Cancer Encounter Details Care Team Description Date Type Department Domenic Gutiérrez MD [address] [place] [address] [phone] Eliazar Bean 10/26/2018 Clinical [facility] [address] [place] [address] Social History Date Tobacco Use Types Packs/Day [...] as of this encounter Progress Notes * Eliazar Bean - 10/26/2018 2:15 PM CDT Continuum of Care Case Management Note Plan: New patient meeting. Intervention: SW met with the pt, his , and two children today in clinic. The pt was here for a new patient consultation with Dr. Gutiérrez. Reviewed the SW role on the transplant team; provided a business card for reference. Provided the Case Management Dept "[facility]" flyer. Assist neha. Eliazar Bean LMSW, [facility] [phone] documented in this encounter Plan of Treatment Not on filedocumented as of this encounter Visit Diagnoses Not on filedocumented in this encounter
--- OUTSIDE RECORDS SUMMARY | 2018-11-18 11:17 | XMS REPORT | Encounter Summary ---
Author Author [facility] Organization [facility] Address Unknown Phone Unavailable Care Team Providers Care Multimedia Specialist Name Role Phone Nicole Weir MD 21 Augusto lEkins MD PCP Reason for Referral * Radiology Services (Routine) Referred By Contact Referred To Contact Status Reason Specialty Diagnoses / Procedures Domenic Gutiérrez MD [address] [place] [address] [facility] Mri [address] [place] [address] No Auth Needed Radiology Diagnoses Light chain (AL) amyloidosis (HCC) P rocedures MRI CARD MORPH FXN WO/W * Consult, Test & Treat (Routine) Referred By Contact Referred To Contact Status Reason Specialty Diagnoses / Procedures Domenic Gutiérrez MD [address] [place] [address] [facility] [address] [place] [address] New Request Specialty Services Nephrology Diagnoses Required Light chain (AL) amyloidosis (HCC) * Consult, Test & Treat (Routine) Referred By Contact Referred To Contact Status Reason Specialty Diagnoses / Procedures Domenic Gutiérrez MD [address] [place] [address] [facility] [address] [facility] [place] [address] New Request Specialty Services Cardiology Diagnoses Required Light chain (AL) amyloidosis (HCC) Encounter Details Care Team Description Date Type Department Barbie Coffey RN Light chain (AL) amyloidosis (HCC) (Primary Dx); Type 2 diabetes mellitus without complication, unspecified whether detention insulin use (HCC) 11/04/2018 Orders Only [facility] [address] [facility] [address] [place], [place] [phone] Social History Date Tobacco Use Types Packs/Day [...] (IFES) Routine Light chain (AL) amyloidosis (HCC) Order Schedule Name Priority Associated Diagnoses Expected: 11/15/2018 (Approximate), Expires: 11/05/2019 IMMUNOFIXATION, SERUM (IFES) Routine Light chain (AL) amyloidosis (HCC) Expected: 11/15/2018 (Approximate), Expires: 11/05/2019 IMMUNOFIXATION URINE 24 HOUR Routine Light chain (AL) amyloidosis (HCC) Expected: 11/04/2018 (Approximate), Expires: 11/05/2019 MRI CARD MORPH FXN WO/W Routine Light chain (AL) amyloidosis (HCC) Order Schedule Name Priority Associated Diagnoses Expected: 11/15/2018 (Approximate), Expires: 11/05/2019 AMB REFERRAL TO ADULT CARDIOLOGY Routine Light chain (AL) amyloidosis (HCC) Expected: 11/15/2018 (Approximate), Expires: 11/05/2019 AMB REFERRAL TO NEPHROLOGY Routine Light chain (AL) amyloidosis (HCC) documented as of this encounter Results * HEMOGLOBIN A1C (11/17/2018 9:10 AM CDT) Hemoglobin A1C 6.9 (H) 4.0 - 6.0 % [facility] Comment: The ADA recommends that most patients with type 1 and type 2 diabetes maintain an A1c level <7%. Specimen Blood Performing Organization Address City/State/Zipcode Phone Number [facility] [address] [place] [address] * COMPREHENSIVE METABOLIC PANEL (11/17/2018 9:10 AM [...] Albumin 2.2 (L) 3.5 - 5.0 G/DL [facility] Alk Phosphatase 84 25 - 110 U/L [facility] AST (SGOT) 23 7 - 40 U/L [facility] CO2 27 21 - 30 MMOL/L [facility] ALT (SGPT) 21 7 - 56 U/L [facility] Anion Gap 8 3 - 12 [facility] eGFR Non 18 (L) >60 mL/min [facility] Comment: Hungarian The eGFR is not validated for use in drug dosing adjustments.Continue to use estimated creatinine clearance per dosing reference text.Please contact the Clinical Pharmacist for questions. eGFR 21 (L) >60 mL/min [facility] [place] Comment: The eGFR is not validated for use in drug dosing adjustments.Continue to use estimated creatinine clearance per dosing reference text.Please contact the Clinical Pharmacist for questions. Specimen Blood Performing Organization Address City/State/Zipcode Phone Number [facility] [address] [place] [address] * CBC AND DIFF (11/17/2018 9:10 AM CDT) White Blood 10.6 4.5 - 11.0 K/UL [facility] Cells RBC 3.44 (L) 4.4 - [...] LAB MPV 8.3 7 - 11 FL [facility] Neutrophils 75 41 - 77 % [...] Basophil Count Specimen Blood Performing Organization Address City[facility] Phone Number [facility] [address] [place] [address] * C REACTIVE PROTEIN (CRP) (11/17/2018 9:10 AM CDT) C-Reactive 0.30 <1.0 MG/DL [facility] Protein Specimen Blood Performing Organization Address City/[facility] Phone Number [facility] [address] [place] [address] * KAPPA/LAMBDA FREE LIGHT CHAINS (11/17/2018 9:10 AM CDT) [place], FLC 3.00 (H) 0.33 - 1.94 MG/DL [facility] Lambda, FLC 2.95 (H) 0.57 - 2.63 MG/DL [facility] [place]/Lambda 1.02 0.26 - 1.65 [facility] FLC Specimen Blood Performing Organization Address City/[facility] Phone Number [facility] [address] [place] [address] * LDH-LACTATE DEHYDROGENASE (11/17/2018 9:10 AM CDT) Lactate 325 (H) 100 - 210 U/L [facility] Dehydrogenase Specimen Blood Performing Organization Address City/State/Zipcode Phone Number [facility] [address] [place] [address] documented in this encounter Visit Diagnoses Diagnosis Light chain (AL) amyloidosis (HCC) - Primary Type 2 diabetes mellitus without complication, unspecified whether detention insulin use (HCC) documented in this encounter
--- OUTSIDE RECORDS SUMMARY | 2018-11-18 11:18 | XMS REPORT | Encounter Summary ---
Author Author [facility] Organization [facility] Address Unknown Phone Unavailable Care Team Providers Care Laborer Aquatic Life Name Role Phone PCP Unavailable Reason for Referral * Transplant (Routine) Referred By Contact Referred To Contact Status Reason Specialty Diagnoses / [place] [address] [place] [address] Cc-Ww Bmt Exm [address] [place] [address] Pending Review Specialty Services Oncology Diagnoses Required Amyloidosis, unspecified type (HCC) Reason for Visit * Reason Comments Navigation Assessment Encounter Details Care Team Description Date Type Department Melissa Zimmer RN Navigation Assessment 09/21/2018 Telephone [facility] Cancer [address] [address] Social History Date Tobacco Use Types Packs/Day Years Used Never Assessed Sex Assigned at Date Recorded Not on file Industry Job Start Date Occupation Not on file Not on file Not on file Travel End Travel History Travel Start No recent travel history available. documented as of this encounter Miscellaneous Notes * Telephone Encounter - Melissa Zimmer RN - 09/21/2018 1:34 PM SENIOR GAME DEVELOPER Heme/BMT Navigation Intake Assessment Document Patient Name: Henry Wilson : 1950 Date of Referral: 09/21/18 Diagnosis & Reason for Visit: Transplant/Treatment Options - AL Amyloidosis [facility]: [id number] APPOINTMENT: Future Appointments Date Time Provider Department Center 10/26/2018 12:30 PM Marcela Rocha MD [facility] Ex[facility] 10/26/2018 1:30 PM BMT EXAM LAB [facility] Exam 10/26/2018 2:00 PM Keily Moore [facility] Ex[facility] 10/26/2018 2:15 PM Eliazar Bean [facility] REFERRING PHYSICIAN: Dr. Nicole Weir FACILITY: [facility] CONTACT NAME: Muna PHONE: [phone] INSURANCE: [employer]/Medicare Allergies: NKDA Family Hx: Father with lymphoma, Mother with breast cancer Medical Hx: Diabetes type 2, CAD, CH, CKD, HTN, hyperlipidemia Surgical Hx: Carpal tunnel release, cataract removal, coronary artery bypass graft Social Hx: , former smoker (quit 2003) HPI: Patient is a 67 year old male who was hospitalized in August 2018 for fluid overload, cellulitis, and worsening creatinine. Nephrology was consulted and was noted to have proteinuria. A renal biopsy was done on , diagnostic for AL Amyloidosis. After discharge, he established care with Dr. Weir as his primary hem/onc. On 09/23/18 he started therapy with Cytoxan, Velcade, and dex (21 day cycle). He is now being referred to [facility] for transplant options. Timeline of Events: DATES 08/18/18 Lab CBC: WBC 12.3, RBC 4.70, Hgb 14.1, Hct 43.4, Plt 228 Uric Acid: 6.9 Chem: BUN 45, CA 7.6, creatinine 5.29 08/23/18 Lab Chem: CA 8.1, BUN 79, creatinine 7.45, TP 3.6, albumin 2.1 FLC: [place] 2.48, Lambda 8.34, K/L ratio 0.2974 SPEP: albumin 1.47, Hypoalbuminemia; no monoclonal proteinemia detected. B2M: Not done 08/25/18 Lab UPEP (24 hour): Faint monoclonal protein identified in urine. Urine Immunofixation: Monoclonal lambda free light chain detected. 08/30/18 Left Kidney BX DIAGNOSIS: Renal Amyloidosis, AL-Type. Acute Tubular Necrosis. Global Glomerulosclerosis (10/36). Interstitial Fibrosis (40-50%) and Tubular Atrophy (35-40%). Moderate Arterio- and Arteriolosclerosis. COMMENT: The biopsy displays amyloid deposition within glomeruli and vasculature. Immunofluorescence microscopy shows that the deposits restrict for lambda light chain, compatible with AL-type amyloidosis. Accordingly, correlation with lambda light chain paraproteinemia and its source is recommended, if clinically indicated. 09/15/18 Lab Immunoglobulins: IgG 359, IgA 72, IgM 31 09/17/18 Lab SPEP: albumin 1.98, TP 4.1, Two indistinct, equivocal bands identified in gamma region. Serum Immunofixation: Two equivocal bands noted, including IgG kappa and lambda free. 09/20/18 BM BX Bone marrow, iliac crest, aspiration and biopsy: Normocellular for age bone marrow with involvement by lambda monotypic plasma cell neoplasm (see Comment). Comment: The bone marrow morphologic examination shows a normocellular for age bone marrow with mild plasmacytosis, with plasma cells accounting for 4.6% of the total cellularity on a 500-cell differential. On flow cytometric analysis, an abnormal lambda monotypic plasma cell population was identified, consistent with a lambda monotypic plasma cell neoplasm. No amyloid-like material is identified on the H&E-stained sections. A Congo red stain performed on the core biopsy sections does not demonstrate any areas of congophilic material. Apple green birefringence is not identified under polarized light examination. Flow: 1% monoclonal lambda plasma cells Cyto: 46,XY[20] FISH: negative 09/23/18 Chemo C1 D1 CTX (cytoxan, velcade, and Dex) 21 day cycle 10/11/18 Lab CBC: WBC 10.5, RBC 3.83, Hgb 10.9, Hct 32.6, Plt 151, NRBC 4 Chem: CA 7.7, BUN 56, creatinine 3.19, TP 4.3, albumin 2.0, alk phos 83, AST 18 , ALT 16 Location of Films: PACS Location of Pathology: MAILED/HAND FLESHER and Patient notified outside pathology slides will be obtained for review by [facility] pathologist and a facility and professional fee will be billed to their insurance. NEEDS Assessment: Genetic Counseling: Assessment: Genetic Assessment: Not assessed at this time Nutrition: Assessment: Additional Nutrition Assessment: Not assessed at this time Social & Financial:Assessment: Social and Financial Assessment: Reports adequate support system;No needs identified Intervention: Social and Financial Intervention: Provided information about available services Spiritual & Emotional: Assessment: Spiritual and Emotional Assessment: Reports adequate support system;No needs identified Intervention: Spiritual and Emotional Intervention: Provided information about available services Physical: Assessment: Fall Risk: None identified Communication: Assessment: Communication Barrier: No Onc Fertility: Assessment: Onc Fertility Assessment: Not applicable Additional Education: Additional Education Documented: No OR GAME DEVELOPER documented in this encounter Plan of Treatment Order Schedule Name Priority Associated Diagnoses Ordered: 09/21/2018 AMB REFERRAL TO BMT PRE-TRANSPLANT Routine Amyloidosis, unspecified FINANCIAL COUNSELING type (HCC) documented as of this encounter Visit Diagnoses Diagnosis Amyloidosis, unspecified type (HCC) - Primary documented in this encounter
--- OUTSIDE RECORDS SUMMARY | 2018-11-18 11:18 | XMS REPORT | Encounter Summary ---
Author Author [facility] Organization [facility] Address Unknown Phone Unavailable Care Team Providers Care Program Advisor Name Role Phone PCP Unavailable Encounter Details Care Team Description Date Type Department 08/30/2018 Hospital [facility] En[facility] [address] [address] Social History Date Tobacco Use Types Packs/Day Years Used Never Assessed Sex Assigned at Date Recorded Not on file Industry Job Start Date Occupation Not on file Not on file Not on file Travel End Travel History Travel Start No recent travel history available. documented as of this encounter Medications at Time of Discharge Start Date End Date Medication Sig Dispensed Refills 03/17/2016 atorvastatin (LIPITOR) 40 Take 40 mg by 0 mg tablet mouth daily with dinner. 03/17/2016 carvedilol (COREG) 6.25 Take 6.25 mg 0 mg tablet by mouth twice daily. 03/17/2016 insulin lispro(+) CORRECTIONAL 0 (HUMALOG KWIKPEN) 100 Dose, unit/mL injection PEN Medium-dose Regimen for Blood Sugars: Less than or equal to 140=no correctional insulin 141 - 180=give and/or add 2 unit 181 - 220=give and/or add 5 units 221 - 280=give and/or add 8 units If glucose greater than 250 on two consecutive readings or greater than 300 once notify provider. 281 - 340=give and/or add 11 units Greater than 3... 03/18/2016 isosorbide mononitrate SR Take 30 mg by 0 (IMDUR) 30 mg tablet mouth daily. 03/18/2016 nitroglycerin (NITROSTAT) Prn . 0 0.4 mg tablet documented as of this encounter Plan of Treatment Not on filedocumented as of this encounter Procedures Comments Procedure Name Priority Date/Time Associated Diagnosis CT MISC EXTERNAL IMAGING Routine 08/30/2018 11:15 AM HEADER BOSS documented in this encounter Results * CT MISC EXTERNAL IMAGING (08/30/2018 11:15 AM HEADER BOSS) Narrative Performed At This order has been auto finalized and does not contain a result. documented in this encounter Visit Diagnoses Not on filedocumented in this encounter
--- OUTSIDE RECORDS SUMMARY | 2018-11-18 11:18 | XMS REPORT | Encounter Summary ---
Author Author [facility] Organization [facility] Address Unknown Phone Unavailable Care Team Providers Care Driver Education Road Instructor Name Role Phone PCP Unavailable Encounter Details Care Team Description Date Type Department 09/15/2018 Hospital [facility] [address] [address] Social History Date Tobacco Use [...] Date End Date Medication Sig Dispensed Refills 09/15/2018 acyclovir (ZOVIRAX) 200 Take 200 mg 0 mg capsule by mouth twice daily. 03/17/2016 atorvastatin (LIPITOR) 40 Take 40 mg by 0 mg tablet mouth daily with dinner. 03/17/2016 carvedilol (COREG) 6.25 Take 6.25 mg 0 mg tablet by mouth twice daily. 09/15/2018 dexamethasone (DECADRON) Take 40 mg by 0 4 mg tablet mouth every 7 days. 08/31/2018 insulin glargine (LANTUS) Inject 5 0 100 unit/mL injection Units under the skin at bedtime daily. 03/17/2016 insulin lispro(+) CORRECTIONAL 0 (HUMALOG [...] (NITROSTAT) Prn . 0 0.4 mg tablet 09/15/2018 ondansetron (ZOFRAN ODT) Dissolve 4 mg 0 4 mg rapid dissolve by mouth tablet every 24 hours as needed. 09/15/2018 prochlorperazine maleate Take 10 mg by 0 (COMPAZINE) 10 mg tablet mouth every 24 hours as needed. documented as of this encounter Plan of Treatment Not on filedocumented as of this encounter Procedures Comments Procedure Name Priority Date/Time Associated Diagnosis [facility] Routine 09/15/2018 IMAGING 9:50 AM IMPROVEMENT INTERN documented in this encounter Results * [facility] IMAGING (09/15/2018 9:50 AM IMPROVEMENT INTERN) Narrative Performed At This order has been auto finalized and does not contain a result. documented in this encounter Visit Diagnoses Not on filedocumented in this encounter
--- OUTSIDE RECORDS SUMMARY | 2018-11-18 11:18 | XMS REPORT | Encounter Summary ---
Author Author [facility] Organization [facility] Address Unknown Phone Unavailable Care Team Providers Care Tool Mechanic Name Role Phone PCP Unavailable Reason for Visit * Reason Comments Transplant Referral Intake Interview Encounter Details Care Team Description Date Type Department Shoshana Dominguez Transplant Referral (Intake Interview ) 09/20/2018 Telephone [facility] [address] [address] Social History Date Tobacco Use Types Packs/Day Years Used Never Assessed Sex Assigned at Date Recorded Not on file Industry Job Start Date Occupation Not on file Not on file Not on file Travel End Travel History Travel Start No recent travel history available. documented as of this encounter Miscellaneous Notes * Telephone Encounter - Shoshana Dominguez - 09/20/2018 3:04 PM DIE CAST SUPERVISOR New Referral IntakeTO PATIENT: Thank you for contacting us, how did you hear about our transplant program? Dr. Reyes Is Danish your primary language? Yes Who is your kidney doctor? Dr. Weir Who is your primary doctor? Dr. Augusto Elkins - [place], [place] Have you had a hospitalization in the past 6 months? No Past Medical History: (if answer is yes, please specify) How tall are you? 5 9 How much do you weigh? 218 Calculated BMI: 32.2 What is the cause of your kidney disease? Abnormal protein Are you currently on dialysis? No Are you diabetic? Yes at what age were you diagnosed? early 40s, PCP Have you been denied or listed by another transplant center? No Have you had a previous organ transplant? No History of: Heart disease? Yes - Triple bypass in 2003 [facility] Do you have a heart doctor? Dr. Morgan in [facility] History of heart stents? Stent in Groin Are you on medication to keep stents open (ex. Coumadin, Plavix, Brilinta)? No Are you on medication to help raise your blood pressure (Midodrine)? No Lung disease? No Are you on oxygen? No Do you wear CPAP (breathing machine at night to sleep)? No Do you use tobacco products or have you in the past?Yes Packs per day? 1 for 25 years? When did you quit? 2004 Do you use any illegal substances or have you in the past? (Chronic use) No TO PATIENT: If you currently smoke, you need to quit to be considered a transplant candidate. Liver disease? No Cancer? No Any active infections? No History of HIV or Hepatitis? No open wounds or sores? No Psychiatric illness? No Do you see a psychiatrist or counselor? No Do you use a cane/walker/ other assistive devices to get around? No Past Surgical History: Have you had any abdominal surgeries? No Have you had any surgeries on blood vessels? No Have you had any amputations? No Would you accept a lifesaving blood transfusion? Yes Demographic and Social History:What gender were you assigned at ? Male What gender do you identify with currently? Male What race do you identify with? Primary Insurance Company: [employer] Policy #: [id number] *Obtain copy of card and have scanned Secondary Insurance Company: Medicare Policy #: [id number] Do you have a support person who will be with you before, during, and after a transplant?Yes, and son Name and Relationship of Support Person: Carter - and son Do you have an interest living donors? yes If so, they are welcome to come to evaluation with you. We may need you to sign a Release of Information Authorization Form. Do you have access to a [employer] machine or an e-mail address we can send it to? [email or web address] TO PATIENT: You will need to bring your support person with you to the transplant evaluation. This is required to be considered a candidate for transplant. If you have interested living donors, they are welcome to come with you, as well. If patient has possible living donor - have them call: If recipient last name, Risa Coley, If recipient last name Philomena Weinstein, CAST SUPERVISOR documented in this encounter Plan of Treatment Not on filedocumented as of this encounter Visit Diagnoses Not on filedocumented in this encounter
--- OUTSIDE RECORDS SUMMARY | 2018-11-18 11:18 | XMS REPORT | Encounter Summary ---
Author Author [facility] Organization [facility] Address Unknown Phone Unavailable Care Team Providers Care Finisher Card Tender Name Role Phone PCP Unavailable Encounter Details Care Team Description Date Type Department Melissa Zimmer RN 09/21/2018 Documentation [facility] [address] [address] Social History Date Tobacco Use Types Packs/Day Years Used Never Assessed Sex Assigned at Date Recorded Not on file Industry Job Start Date Occupation Not on file Not on file Not on file Travel End Travel History Travel Start No recent travel history available. documented as of this encounter Progress Notes * Melissa Zimmer RN - 09/21/2018 1:14 PM DISPLAY DIRECTOR Encounter opened for Care Everywhere LAY DIRECTOR documented in this encounter Plan of Treatment Not on filedocumented as of this encounter Visit Diagnoses Not on filedocumented in this encounter
--- OUTSIDE RECORDS SUMMARY | 2018-11-18 11:18 | XMS REPORT | Encounter Summary ---
Author Author [facility] Organization [facility] Address Unknown Phone Unavailable Care Team Providers Care Diesel Engine Ii Pipe Fitter Name Role Phone PCP Unavailable Encounter Details Care Team Description Date Type Department Marcela Rocha MD [address] [facility] [place] [address] Amyloidosis, unspecified (HCC) 10/05/2018 Hospital [facility] [address] [address] Social History Date Tobacco Use Types Packs/Day [...] 0 mg tablet by mouth twice daily. 10/01/2018 cyclophosphamide Take 650 mg 0 (CYTOXAN) 50 mg capsule by mouth every 7 days. 09/15/2018 dexamethasone (DECADRON) Take 40 mg by 0 4 mg tablet mouth every 7 days. 09/30/2018 furosemide (LASIX) 40 mg Take 40 mg by 0 tablet mouth every 24 hours as needed. 08/31/2018 insulin glargine (LANTUS) Inject 5 0 [...] Comments Procedure Name Priority Date/Time Associated Diagnosis OUTSIDE PATHOLOGY CONSULT 10/05/2018 11:16 AM COBOL ENGINEER PATHOLOGY REPORTS FROM 10/05/2018 OUTSIDE SCAN 12:00 AM COBOL ENGINEER documented in this encounter Results * OUTSIDE PATHOLOGY CONSULT (10/05/2018 11:16 AM COBOL ENGINEER) PATHOLOGY [facility] [email or web address] Department of Pathology and Laboratory Medicine [address] [place] [address] Surgical Pathology Office:[phone] :[phone] PATHOLOGY CONSULTATION NAME: HENRY RODRÍGUEZ SURG PATH #: [id number] MR #: [id number] ALT ID #: LOCATION: [facility] DATE OF PROCEDURE: 10/05/2018 AGE:67 SEX: M DATE RECEIVED: 10/05/2018 : 1950TIME RECEIVED:11:16 PHYSICIAN: Marcela Rocha MD DATE OF REPORT: 10/12/2018 COPY TO:DATE OF PRINTIN10/12/2018 OUTSIDE INSTITUTION: [place] [address] [place] [address] P: [phone] F: [phone] ############################## ############################## ############ Final Diagnosis: A. Outside case "[id number]" (Date collected: 08/30/18): 1. AL (LAMBDA) AMYLOIDOSIS. [...] Material Received: A: Outside Slides x5 [id number] [facility] [place], [place] [address] History: 67 year-old male. Outside kidney biopsy taken on 08/30/2018 read as follows: Renal Amyloidosis, AL-Type Acute Tubular Necrosis Global Glomerulosclerosis (10/36) Interstitial Fibrosis (40-50%) and Tubular Atrophy (35-40%) Moderate Arterio- and Arteriolosclerosis Gross Description: A. Received are five (5) outside slides, a CD, and a report labeled "[id number]". 10/05/2018 Microscopic Description: LIGHT MICROSCOPY REPORT: Sections of havasupai kidney core biopsy stained by periodic acid-Royal, [...] of Pathology and Laboratory Medicine of the [facility] ([employer]) in compliance with CLIA'88 regulations.Some [...] of Pathology and Laboratory Medicine of the [facility].It has not been cleared or approved by the FDA.The FDA has determined that such clearance or approval is not necessary. Performing Organization Address City/State/Zipcode Phone Number [facility] [address] [place] [address] * PATHOLOGY REPORTS FROM OUTSIDE SCAN (10/05/2018 12:00 AM COBOL ENGINEER) Narrative Performed At Ordered by an unspecified provider. documented in this encounter Visit Diagnoses Not on filedocumented in this encounter
--- OUTSIDE RECORDS SUMMARY | 2018-11-18 11:18 | XMS REPORT | Encounter Summary ---
Author Author [facility] Organization [facility] Address Unknown Phone Unavailable Care Team Providers Care Grease Rack Worker Name Role Phone Nicole Weir MD [address] Augusto Elkins MD PCP Reason for Visit * Reason Comments Transplant Referral d/w Dr Sanchez- denied Encounter Details Care Team Description Date Type Department Nelda Spring, pole cutter Referral (d/w Dr Sanchez- denied) 10/07/2018 Telephone The [address] [id number] Social History Date Tobacco Use Types Packs/Day Years Used Never Assessed Sex Assigned at Date Recorded Not on file Industry Job Start Date Occupation Not on file Not on file Not on file Travel End Travel History Travel Start No recent travel history available. documented as of this encounter Miscellaneous Notes * Telephone Encounter - Nelda Spring, RN - 10/07/2018 11:28 AM PAYMENT POSTER Referral Review with: Dr Sanchez Coordinator reviewed all available testing/documentation Determination: DENIED d/t Amyloidosis. Will need to be treated and in remission before re-referred. Mention [facility], they can do Bone Marrow and Kid Txp. ENT POSTER documented in this encounter Plan of Treatment Not on filedocumented as of this encounter Visit Diagnoses Not on filedocumented in this encounter
--- OUTSIDE RECORDS SUMMARY | 2018-11-18 11:18 | XMS REPORT | Encounter Summary ---
Author Author [facility] Organization [facility] Address Unknown Phone Unavailable Care Team Providers Care Blow Pit Helper Name Role Phone PCP Unavailable Reason for Visit * Reason Comments Transplant Referral Denied- second attempt Encounter Details Care Team Description Date Type Department Nelda Spring RN Transplant Referral (Denied- second attempt) 10/18/2018 Telephone [facility] [address] [address] Social History Date Tobacco Use [...]
--- OUTSIDE RECORDS SUMMARY | 2018-11-18 11:18 | XMS REPORT | Encounter Summary ---
Author Author [facility] Organization [facility] Address Unknown Phone Unavailable Care Team Providers Care Veterinary Microbiologist Name Role Phone Nicole Weir MD [address] Augusto Elkins MD PCP Reason for Visit * Reason Comments New CA Pt * Consult, Test & Treat (Routine) Referred By Contact Referred To Contact Status Reason Specialty Diagnoses / Procedures Nicole Weir MD [address] [place] [address] [place] [address] [place] [address] Pending Review Oncology Diagnoses Renal Amyloidosis Encounter Details Care Team Description Date Type Department Domenic Gutiérrez MD [address] [place] [address] Light chain (AL) amyloidosis (HCC); S/P CABG (coronary artery bypass graft); Stage 5 chronic kidney disease not on chronic dialysis (HCC); Peripheral vascular disease (HCC); Peripheral edema; Ulcers of both lower extremities, limited to breakdown of skin (HCC) 10/26/2018 [place] [address] Social History Date Tobacco Use Types Packs/Day [...] Vital Signs Time Taken Vital Sign Reading 10/26/2018 12:23 PM CDT Blood Pressure 130/61 10/26/2018 12:23 PM CDT Pulse 68 10/26/2018 12:23 PM CDT Temperature 36.5 C (97.7 F) 10/26/2018 12:23 PM CDT Respiratory Rate 20 10/26/2018 12:23 PM CDT Oxygen Saturation 97% - Inhaled Oxygen - Concentration 10/26/2018 12:23 PM CDT Weight 98.5 kg (217 lb 3.2 oz) 10/26/2018 12:23 PM CDT Height 173.4 cm (5' 8.25") 10/26/2018 12:23 PM CDT Body Mass Index 32.78 documented in this encounter Progress Notes * Domenic Gutiérrez MD - 10/26/2018 12:30 PM CDT Name: Henry Wilson : 1950 AGE: 68 y.o. DATE OF SERVICE: 10/26/2018 Subjective: Reason for Visit: AL Amyloidosis involving kidneys, here to discuss stem cell transplant No chief complaint on file. Henry Wilson is a 68 y.o. male. Cancer Staging No matching staging information was found for the patient. History of Present IllnessPatient is a 67 year old male who [...] cycle). He is now being referred to BMT for transplant options. Allergies: NKDA Family Hx: Father with lymphoma, Mother with breast cancer Medical Hx: Diabetes type 2, CAD, CH, CKD, HTN, hyperlipidemia Surgical Hx: Carpal tunnel release, cataract removal, coronary artery bypass graft Social Hx: , former smoker (quit 2003) Review of Systems Constitutional: Positive for fatigue. Negative for fever and unexpected weight change. HENT: Negative. Eyes: Negative. Respiratory: Positive for shortness of breath (on exertion). Cardiovascular: Positive for leg swelling. Gastrointestinal: Positive for constipation. Endocrine: Negative. Genitourinary: Positive for frequency. Musculoskeletal: Positive for arthralgias. B/L Leg ulcers and weeping fluid Skin: Negative. Allergic/Immunologic: Positive for immunocompromised state. Neurological: Positive for weakness. Hematological: Negative. Psychiatric/Behavioral: Negative. Objective: No current outpatient medications on file. There were no vitals filed for this visit. There is no height or weight on file to calculate BMI. Pain Addressed: Current regimen working to control pain. Patient Evaluated for a Clinical Trial: No treatment clinical trial available for this patient. Karnofsky Scale: 80% Normal activity with effort; some symptoms of disease Physical Exam Constitutional: He is oriented to person, place, and time. He appears well- developed and well-nourished. No distress. HENT: Head: Normocephalic and atraumatic. Mouth/Throat: No oropharyngeal exudate. Eyes: EOM are normal. Pupils are equal, round, and reactive to light. No scleral icterus. Neck: Normal range of motion. Neck supple. Cardiovascular: Normal rate and regular rhythm. Murmur heard. Pulmonary/Chest: Effort normal and breath sounds normal. Abdominal: Soft. Bowel sounds are normal. Musculoskeletal: Normal range of motion. He exhibits edema. Weeping leg ulcers on shins Bilateral Lymphadenopathy: He has no cervical adenopathy. Neurological: He is alert and oriented to person, place, and time. Skin: Skin is warm. Psychiatric: He has a normal mood and affect. His behavior is normal. Nursing note and vitals reviewed. Timeline of Events: DATES 08/18/18 Lab CBC: WBC 12.3, RBC 4.70, Hgb 14.1, Hct 43.4, Plt 228 Uric Acid: 6.9 Chem: BUN 45, CA 7.6, creatinine 5.29 08/23/18 Lab Chem: CA 8.1, BUN 79, creatinine 7.45, TP 3.6, albumin 2.1 FLC: [place] 2.48, Lambda 8.34, K/L ratio 0.2974 SPEP: [...] phos 83, AST 18 , ALT 16 Assessment and Plan: BMT ASSESSMENT & PLAN Primary Diagnosis: Lambda Restricted Renal AL Amyloidosis Started on CyBorD D/W her the role of transplantation in Primary amyloidosis. We also discussed the incurable nature of the disease. Then we discussed [facility] criteria and our algorithm for collecting cells and transplanting AL. BID dosing of GCSF will be used. There is a real risk of fluid overload and exacerbation of heart failure with neupogen. We also discussed the role of High dose Melphalan. The latrenatives were discussed. The only randomized trial did not show any benefit but the dose used was Breanna 140 and many criticism exist for that trial. We discussed various Phase II trials and the most recent JCO article from [employer]. Transplant related mortality and survival and success were discussed. Heme: Stable counts, transfusion independent FEN/Renal: Elevated Creatinine, due to AL Amyloidosis. Encourage PO fluids, Renally dose medications and Monitor renal function closely - Once we reviewed the renal biopsy in details, one could see that Renal amyloid is only a part of his problems. He has features of ATN, Arteriosclerosis , Tubular Atrophy and global glomerulosclerosis and all of that most likely related to long standing HTN and atherosclerosis - CKD in August 2018 was Stage 5, now stage 4 - Tense edema on lasix and Metolazone - Endocrine: Type II DM Cardiovascular: Continue Anti-Hypertensives Carvedilol - CABG- On Aspirin/Lipitor/NTG - Peripheral Vascular Disease S/P Right Femoral stent - Checking BNP/Troponin T Infectious Disease: No active infections and Continue prophylaxis anti- infectives - ACV Pulmonary: N/A SOA on exertion GI: No active issues related to nausea, emesis or diarrhea Integumentary: N/A Pain: Controlled on current analgesics. MSK/Derm: B/L leg ulcers non healing from edema and Peripheral Vascular Disease Psychology: No active issues, monitor and offer support as needed. RTC after Pre Transplant evaluation in November Domenic Gutiérrez MD product representative Hematological Malignancies and [employer] [facility] documented in this encounter Plan of Treatment Not on filedocumented as of this encounter Procedures Comments Procedure Name Priority Date/Time Associated Diagnosis [facility] TEST Routine 10/26/2018 1:30 PM CDT [facility] [place] TEST Routine 10/26/2018 1:30 PM CDT [facility] REFERENCE TEST Routine 10/26/2018 1:30 PM CDT [facility] REFERENCE TEST Routine 10/26/2018 1:30 PM CDT documented in this encounter Results * [facility] TEST (10/26/2018 1:30 PM CDT) [facility] Ref Lab Test [id number], Troponin T REFERENCE LAB Code REF LAB RESULT SEE NOTE REFERENCE LAB (MSAR) Test name Result Flag UnitsRefIntvl - Troponin-T 0.11 H ng/mL <=0.01 Performed by [facility], [address] [place] [id number] [email or web address], Matthew Moy MD, Lab. Director Performing Organization Address [facility] Phone Number REFERENCE LAB REFERENCE LAB See results for address. * [facility] REFERENCE TEST (10/26/2018 1:30 PM CDT) [facility] Test Troponin T REFERENCE LAB Reference Lab PERFORMED AT [facility] REFERENCE LAB LABORATORY-FOR REF RANGE SEE REPORT. Results Ref Lab SEE REF LAB RESULT REFERENCE LAB Specimen Mail [facility] REFERENCE LAB Performing Organization Address [facility] Phone Number REFERENCE LAB REFERENCE LAB See results for address. * [facility] TEST (10/26/2018 1:30 PM CDT) [facility] PBNP, NT Pro BNP, S REFERENCE LAB Miscellaneous Test Info [place] SEE COMMENTS 10/27/2018 11:15 REFERENCE LAB Miscellaneous AM Result Test ResultFlag Unit RefValue ------ NT-Pro BNP, S >82348 Hpg/mL<=95 NT-proBNP values less than 300 pg/mL [...] absence of renal failure. Test Performed by: [address] [address] Performing Organization Address City/State/Zipcode Phone Number REFERENCE LAB REFERENCE LAB See results for address. * [facility] REFERENCE TEST (10/26/2018 1:30 PM CDT) [facility] Test NT Pro B Type Natriuretic REFERENCE LAB Peptide (BNP), Serum Reference Lab PERFORMED AT [facility] REFERENCE LAB LABORATORIES Results Ref Lab SEE [facility] TEST REFERENCE LAB Specimen Mail [facility] REFERENCE LAB Performing Organization Address City/State/Zipcode Phone Number REFERENCE LAB REFERENCE LAB See results for address. documented in this encounter Visit Diagnoses Diagnosis Light chain (AL) amyloidosis (HCC) S/P CABG (coronary artery bypass graft) Postsurgical aortocoronary bypass status Stage 5 chronic kidney disease not on chronic dialysis (HCC) Peripheral vascular disease (HCC) Peripheral vascular disease, unspecified Peripheral edema Edema Ulcers of both lower extremities, limited to breakdown of skin (HCC) documented in this encounter
--- OUTSIDE RECORDS SUMMARY | 2018-11-18 11:18 | XMS REPORT | Encounter Summary ---
Author Author [facility] Organization [facility] Address Unknown Phone Unavailable Care Team Providers Care International Student Advisor Name Role Phone PCP Unavailable Encounter Details Care Team Description Date Type Department Marcela Rocha MD [address] [facility] [place] [address] Amyloidosis, unspecified (HCC) 10/01/2018 Hospital [facility] [address] [address] Social History Date Tobacco Use Types Packs/Day [...] Priority Date/Time Associated Diagnosis OUTSIDE PATHOLOGY CONSULT 10/01/2018 10:55 AM GRAIN SACKER PATHOLOGY REPORTS FROM 10/01/2018 OUTSIDE SCAN 12:00 AM GRAIN SACKER documented in this encounter Results * OUTSIDE PATHOLOGY CONSULT (10/01/2018 10:55 AM GRAIN SACKER) PATHOLOGY [facility] [email or web address] Department of Pathology and Laboratory Medicine [address] [place] [id number] Surgical Pathology Office:[phone] :[phone] PATHOLOGY CONSULTATION NAME: HENRY RODRÍGUEZ SURG PATH #: [id number] MR #: [id number] ALT ID #: LOCATION: [facility] DATE OF PROCEDURE: 10/01/2018 AGE:67 SEX: M DATE RECEIVED: 10/01/2018 : 1950TIME RECEIVED:10:55 PHYSICIAN: Marcela Rocha MD DATE OF REPORT: 2018 COPY TO:DATE OF PRINTIN2018 OUTSIDE INSTITUTION: [facility] Department of Pathology [address] [place], [place] [address] [id number] ############################## ############################## ############ Final Diagnosis: A. Outside case [id number] (Date Collected: 09/20/2018) Bone marrow, iliac crest, aspirate, biopsy, clot, and touch prep: Normocellular bone marrow (30-40%) with trilineage hematopoiesis and 5% plasma cells. Flow cytometry of bone marrow reports 1% monoclonal lambda plasma cells. See comment. Peripheral blood smear: CBC data not provided. Morphologic findings appear normal. Comment: The bone marrow shows trilineage hematopoiesis with 5% plasma cells. Flow cytometry shows the plasma cells to express monoclonal lambda light chain. Clinical correlation is recommended for further evaluation and staging of possible plasma cell neoplasm. The Congo red stain for amyloid on the core biopsy is negative. Attestation: By this signature, I attest that I have personally formulated the final interpretation expressed in this report and that the above diagnosis is based upon my examination of the slides and/or other material indicated in this report. +++ +++ paj/10/01/2018 ############################## ############################## ############ Material Received: A: Outside Slides x6 [id number], [facility], Department of Pathology, [address] [place], [place] [address] [address] History: 67-year-old male with clinical history of amyloidosis. Outside bone marrow slides are submitted for review. Gross Description: A. Received are six (6) outside slides and a report labeled "[id number]". paj/10/01/2018 Microscopic Description: CBC Data:Not provided. Blood Smear Diff (%): Segmented neutrophils 55; lymphocytes 42; monocytes 2 Blood Smear Morphology: RBC: Normochromic and normocytic, without rouleaux WBC:Normal Platelets:Normal Bone Marrow Aspirate/Touch Prep Morphology: Aspirate Adequacy:Adequate Touch Prep Adequacy:Not performed Cellularity:Normal Megakaryocytes:Normal Blasts:Normal Erythroid:Normal Granulocytes:Normal Lymphocytes:Normal Plasma Cells: Slightly increased in number and normal in morphology Bone Marrow Differential Cell Count (%): Blasts:1 Promyelocytes: 2 Myelocytes: 5 Metamyelocytes: 3 Segs/Bands: 30 Eosinophils: 4 Erythroid: 40 Monocytes: 2 Lymphocytes: 10 Plasma cells: 5 M:E ratio: 1:1 Bone Marrow Core Biopsy: Adequacy:Adequate Length:1.2 cm Cellularity:40% Megakaryocytes:Normal Hematopoiesis:Resembles aspirate smear / touch prep, with polymorphous trilineage hematopoiesis Atypical Infiltrates: No large aggregates of plasma cells are identified with routine staining Bone Marrow Cell Clot: Adequacy:Adequate Cellularity:30% Pertinent Findings:Resembles core biopsy Additional Stains: Iron Stain:Not performed Immunohistochemistry: Performed at outside institution but not provided for review Chromogenic In Situ Hybridization:Not performed Other Special Stains: Congo red stain on core biopsy is provided for review and is negative for amyloid Ancillary Studies: Flow Cytometry:Performed and reported: Lambda monotypic plasma cell neoplasm. Percentage of abnormal cells: 0.98% A monoclonal lambda plasma cell (CD38 bright) population is present. No definite heavy chain expression isdemonstrable. The plasma cells also express CD56 and CD117.The B-cells (2%) are polyclonal. Cytogenetics:Not performed Fluorescence In Situ Hybridization:Not performed Molecular Genetics:Not performed Preliminary Diagnosis: Not performed If immunohistochemical stains and/or in situ hybridization are cited in this report, the performance characteristics were determined by the Department of Pathology and Laboratory Medicine of the [facility] ([employer]) in compliance with CLIA'88 [...] of Pathology and Laboratory Medicine of the [facility].It has not been cleared or approved by the FDA.The FDA has determined that such clearance or approval is not necessary. Performing Organization Address City/State/Zipcode Phone Number MAIN LAB [address] [place] [address] * PATHOLOGY REPORTS FROM OUTSIDE SCAN (10/01/2018 12:00 AM GRAIN SACKER) Narrative Performed At Ordered by an unspecified provider. documented in this encounter Visit Diagnoses Not on filedocumented in this encounter
--- NOTE | 2018-11-18 11:19 | NUR ---
Pause for pulse check and ROSC achieved. ETCO2 38. Compressions stopped. Continue BVM for rescue breathing of intubated apneic pt.
--- OUTSIDE RECORDS SUMMARY | 2018-11-18 11:19 | XMS REPORT | Clinical Summary ---
Author Author [facility] Organization [facility] Address Unknown Phone Unavailable Care Team Providers Care Contact Center Director Name Role Phone PCP Unavailable Allergies Not on File Current Medications Not on file Active Problems Not on file Encounters Date Type Specialty Care Team Description 10/08/2018 Telephone Medical Oncology Josie Novak RN 10/07/2018 Telephone Medical Oncology Josie Novak RN 10/06/2018 Telephone Medical Oncology Meme Amaya RN 10/05/2018 Telephone Medical Oncology Edgard Newman MD 09/16/2018 Orders Only Medical Oncology ProviderCookie MD from Last 3 Months Social History Tobacco Use Types Packs/Day Years Used Date Never Assessed Sex Assigned at Date Recorded Not on file Last Filed Vital Signs Not on file Plan of Treatment Health Maintenance Due Date Last Done Comments Hepatitis C Screen 1950 Td # 1950 Colorectal Screening via 2000 Colonoscopy Zoster Vaccine# (1 of 2) 2000 Fall Risk Assessment # 2015 Pneumococcal Immunization 2015 65+ (1 of 2 - PCV13) Influenza Vaccine (Season 06/17/2019 Ended) Procedures Procedure Name Priority Date/Time Associated Diagnosis Comments LAB OUTSIDE RECORD Routine 09/16/2018 12:00 AM COMPLAINT EVALUATION SUPERVISOR XR OUTSIDE RECORD Routine 09/16/2018 12:00 AM COMPLAINT EVALUATION SUPERVISOR US OUTSIDE RECORD Routine 09/16/2018 12:00 AM COMPLAINT EVALUATION SUPERVISOR from Last 3 Months Results * Lab Outside Record (09/16/2018) Narrative Performed At * XR Outside Record (09/16/2018) Narrative Performed At * US Outside Record (09/16/2018) Narrative Performed At from Last 3 Months
--- OUTSIDE RECORDS SUMMARY | 2018-11-18 11:19 | XMS REPORT | Encounter Summary ---
Author Author [facility] Organization [facility] Address Unknown Phone Unavailable Care Team Providers Care Worm Farmer Name Role Phone PCP Unavailable Encounter Details Date Type Department Care Team Description 10/08/2018 Telephone [facility] Cancer Josie Novak, RN Specialists [address] [facility] [address] [place] [address] Social History Tobacco Use Types Packs/Day Years Used Date Never Assessed Sex Assigned at Date Recorded Not on file as of this encounter Miscellaneous Notes * Telephone Encounter - Shaye Pierson MA - 10/08/2018 9:36 AM INFORMATION SYSTEMS SECURITY ANALYST You're awesome, thanks! * Telephone Encounter - Josie Novak RN - 10/08/2018 9:33 AM INFORMATION SYSTEMS SECURITY ANALYST RN called pt to cancel appt due to lack of records. Pt's answered, patient was unavailable. RN informed pt's of need to cancel appt. Pt's states they spoke with someone from the office but did not believe an appt had ever been set. RN informed pt's she would cancel appt and they can call to reschedule if they would like. RN offered pt's direct phone number but she declined stating they already have the clinic's phone number. Pt's confirmed they will call to reschedule when ready. in this encounter Plan of Treatment Not on fileas of this encounter Visit Diagnoses Not on filein this encounter
--- OUTSIDE RECORDS SUMMARY | 2018-11-18 11:19 | XMS REPORT | Encounter Summary ---
Author Author [facility] Organization [facility] Address Unknown Phone Unavailable Care Team Providers Care General Foreman Name Role Phone PCP Unavailable Encounter Details Date Type Department Care Team Description 10/05/2018 Telephone [facility] Cancer Edgard Newman MD Specialists [address] [facility] [address] [facility] [address] [place] [address] [place] [address] [phone] Social History Tobacco Use Types Packs/Day Years Used Date Never Assessed Sex Assigned at Date Recorded Not on file as of this encounter Miscellaneous Notes * Telephone Encounter - Shaye Pierson MA - 10/05/2018 3:00 PM DIRECTOR DIGITAL CATALOGUE TYREL attempted to call pt but no answer or vm. TYREL Note: Will still have not receive outside records. We will need to have those records by 10/06 or we will have to reschedule. in this encounter Plan of Treatment Not on fileas of this encounter Visit Diagnoses Not on filein this encounter
--- OUTSIDE RECORDS SUMMARY | 2018-11-18 11:19 | XMS REPORT | Encounter Summary ---
Author Author [facility] Organization [facility] Address Unknown Phone Unavailable Care Team Providers Care Office Analyst Name Role Phone PCP Unavailable Encounter Details Date Type Department Care Team Description 10/06/2018 Telephone [facility] Cancer Meme Amaya RN Specialists [address] [facility] [address] [place] [address] Social History Tobacco Use Types Packs/Day Years Used Date Never Assessed Sex Assigned at Date Recorded Not on file as of this encounter Miscellaneous Notes * Telephone Encounter - Meme Amaya RN - 10/06/2018 12:46 PM CAR SUPERVISOR RN called and spoke with patient to let him know records from previous java swing developer oncologist have not been received. RN let patient know appointment would need to be rescheduled if the records are not able to be obtained prior to his OV. Patient verbalized understanding. RN gave patient call back number so patient could let RN know. in this encounter Plan of Treatment Not on fileas of this encounter Visit Diagnoses Not on filein this encounter
--- OUTSIDE RECORDS SUMMARY | 2018-11-18 11:19 | XMS REPORT | Encounter Summary ---
Author Author [facility] Organization [facility] Address Unknown Phone Unavailable Care Team Providers Care Air Valve Repairer Name Role Phone PCP Unavailable Encounter Details Date Type Department Care Team Description 10/07/2018 Telephone [facility] Cancer Josie Novak, RN Specialists [address] [facility] [address] [place] [address] Social History Tobacco Use Types Packs/Day Years Used Date Never Assessed Sex Assigned at Date Recorded Not on file as of this encounter Miscellaneous Notes * Telephone Encounter - Josie Novak RN - 10/07/2018 2:50 PM DESTINATION SIGN REPAIRER RN called patient to cancel appt for 10/08 as no records have been received, including insurance cards. Phone number on file rang with no answer and no option to leave voicemail. in this encounter Plan of Treatment Not on fileas of this encounter Visit Diagnoses Not on filein this encounter
--- OUTSIDE RECORDS SUMMARY | 2018-11-18 11:19 | XMS REPORT | Encounter Summary ---
Author Author [facility] Organization [facility] Address Unknown Phone Unavailable Care Team Providers Care Echo Vascular Technologist Name Role Phone PCP Unavailable Encounter Details Care Team Description Date Type Department 08/23/2018 Hospital [facility] Encounter [facility] System [address] [address] Social History Date Tobacco Use [...] Procedure Name Priority Date/Time Associated Diagnosis GENERAL RAD CHEST Routine 08/23/2018 EXTERNAL IMAGING 3:00 PM FIELD RECORDER documented in this encounter Results * GENERAL RAD CHEST EXTERNAL IMAGING (08/23/2018 3:00 PM FIELD RECORDER) Narrative Performed At This order has been auto finalized and does not contain a result. documented in this encounter Visit Diagnoses Not on filedocumented in this encounter
--- OUTSIDE RECORDS SUMMARY | 2018-11-18 11:19 | XMS REPORT | Encounter Summary ---
Author Author [facility] Organization [facility] Address Unknown Phone Unavailable Care Team Providers Care Product Tester Fiberglass Name Role Phone PCP Unavailable Encounter Details Care Team Description Date Type Department 08/20/2018 Hospital [facility] Encounter [facility] System [address] [address] Social History Date Tobacco Use [...] Date/Time Associated Diagnosis GENERAL RAD CHEST Routine 08/20/2018 EXTERNAL IMAGING 7:45 PM VETERANS' COORDINATOR documented in this encounter Results * GENERAL RAD CHEST EXTERNAL IMAGING (08/20/2018 7:45 PM VETERANS' COORDINATOR) Narrative Performed At This order has been auto finalized and does not contain a result. documented in this encounter Visit Diagnoses Not on filedocumented in this encounter
--- OUTSIDE RECORDS SUMMARY | 2018-11-18 11:19 | XMS REPORT | Encounter Summary ---
Author Author [facility] Address Unknown Phone Unavailable Care Team Providers Care Esters And Emulsifiers Supervisor Name Role Phone PCP Unavailable Encounter Details Date Type Department Care Team Description 09/16/2018 Orders Only [facility] Cancer Provider, MD Cookie Specialists [facility] [address] [place] [address] [address] [place] [address] Social History Tobacco Use Types Packs/Day Years Used Date Never Assessed Sex Assigned at Date Recorded Not on file as of this encounter Plan of Treatment Not on fileas of this encounter Procedures Procedure Name Priority Date/Time Associated Diagnosis Comments LAB OUTSIDE RECORD Routine 09/16/2018 12:00 AM HYDRAULIC BULL RIVETER OPERATOR XR OUTSIDE RECORD Routine 09/16/2018 12:00 AM HYDRAULIC BULL RIVETER OPERATOR US OUTSIDE RECORD Routine 09/16/2018 12:00 AM HYDRAULIC BULL RIVETER OPERATOR in this encounter Results * Lab Outside Record (09/16/2018) Narrative Performed At * XR Outside Record (09/16/2018) Narrative Performed At * US Outside Record (09/16/2018) Narrative Performed At in this encounter Visit Diagnoses Not on filein this encounter
--- NOTE | 2018-11-18 11:28 | NUR ---
Critical labs called to this principal technical writer and reported to Dr Ng present in pt room. CO2- 10.9, Troponin 336.7.
--- NOTE | 2018-11-18 11:30 | NUR ---
Central line is successful at placement in R IJ. Xray is available
--- NOTE | 2018-11-18 11:35 | NUR ---
Review of assessments: Pt NIBP 84/43, pulse 101, SAO2 95% with 100% O2, BVM having the FIO2 titrated down to approx 60%. ETCO2 at 45. Dr having rescue breahtes raised to 20 per minute.
--- NOTE | 2018-11-18 11:39 | NUR ---
CXR completed. Dr to view and reports central line is good placement, ok to use at 1140.
[2018-11-18] MEDS ORDERED: PIPERACILLIN/TAZOBACTAM (BULK) 4.5 GM in NS (IVPB) 100 ML IV STA (11:44)
[2018-11-18] MEDS ORDERED: VANCOMYCIN INJECTION 2,000 MG in NS IV 500 ML 500 ML IV STA (11:44)
--- NOTE | 2018-11-18 11:44 | NUR ---
Levophed began at 0.05 mcg/kg/min = 19.1 on Bryant pump to central line. The NS from EMS converted to central line. The IO placement to distal left tibia remains accessed, no fluids.
[2018-11-18 11:50] LABS: SODIUM 130 MMOL/L (135-145)
--- NOTE | 2018-11-18 11:50 | NUR ---
Add'l blood is able to be drawn from central line and Lactic Acid and Blood culture set #1 sent to lab.
[2018-11-18 11:51] LABS: BUN/CREATININE RATIO 22; CARBON DIOXIDE 11 MMOL/L (21-32); CHLORIDE 90 MMOL/L (98-107); CREATININE SERUM 3.92 MG/DL (0.60-1.30); GFR ESTIMATED 15; GLUCOSE 150 MG/DL (70-105); POTASSIUM 4.1 MMOL/L (3.6-5.0)
--- NOTE | 2018-11-18 11:51 | Diagnostic Imaging Report ---
INDICATION: Central line placement. TIME OF EXAM: 10:38 AM Correlation is made with prior study from 08/15/2018. FINDINGS: Changes of median sternotomy are noted. ET tube appears to have the tip in good position above the stefan. NG tube passes below the diaphragm. Right IJ line has its tip at the SVC right atrial junction. No pneumothorax is seen. External pacer overlies the right chest. There appear to be small bilateral effusions. IMPRESSION: 1. Support lines and catheters, as described. No pneumothorax is seen. 2. Small bilateral effusions. Dictated by: Dictated on workstation # [id number]
--- NOTE | 2018-11-18 12:00 | NUR ---
Reassessment: Heart rate 78 with continued sinus rhythm with arrhythmia; freq PVC's. SAO2-97% on BVM of approx rate 20/min with FIO2 at approx 60%. ETCO2-24-26.
--- NOTE | 2018-11-18 12:00 | NUR ---
[facility] M[facility]za has accepted for transfer per Dr Ng.
[2018-11-18] MEDS ORDERED: DOBUTamine DRIP 250 ML IV ONE (12:02)
--- NOTE | 2018-11-18 12:02 | NUR ---
NIBP dropped 52/33, ETCO2 21-24. DOPAMINE continues with LEVOPHED titrated up to 0.1 mcg/kg/min = 38.1 ml/hr
[2018-11-18] MEDS ORDERED: HYDROCORTISONE 100 MG/2 ML (Solu-CORTEF) VIAL IV STA (12:03)
--- NOTE | 2018-11-18 12:04 | NUR ---
Levophed titrated to 0.15 mcg/kg/min
--- NOTE | 2018-11-18 12:07 | NUR ---
BICARB [address] order.
--- NOTE | 2018-11-18 12:08 | NUR ---
Bicarb [address] order.
--- NOTE | 2018-11-18 12:10 | NUR ---
DOBUTAMINE began at 2.5 mcg/kg/min=15ml/hr.
--- NOTE | 2018-11-18 12:11 | NUR ---
Considered Cardiogenic shock. NIBP 64/30. Levophed titrated to 0.2 mcg/kg/min= 76.2 ml/hr.
--- NOTE | 2018-11-18 12:20 | NUR ---
At nurses station attempting call report to Tory Mendo[facility]. The RN named Preethi will return call.
[2018-11-18] MEDS ORDERED: HEParin 1000 UNIT/ML (10ML VIAL) FOR BOLUS ONE (12:30)
[2018-11-18] MEDS ORDERED: HEParin DRIP 25000 UNIT/500ML 500 ML IV ONE (12:30)
--- NOTE | 2018-11-18 12:30 | NUR ---
Report given to Preethi DE [place] ROSA and call ends with we are receiving a verbal order from consulting electrical and instrumentation mechanic at [facility] to start Heparin. There will be add'l drip and bolus prior.
[2018-11-18] MEDS ORDERED: CALCIUM CHLORIDE 1 GM/10 ML (IMS) SYR INJ STA (12:34)
--- NOTE | 2018-11-18 12:35 | NUR ---
[facility] arrived and are present to receive pt and report. Dr giving numerous verbal orders after consultation with [facility] Mendo[facility] pet counselor.
--- NOTE | 2018-11-18 12:38 | NUR ---
CALCIUM CHLORIDE 10% 13.6 mEq given IV as ordered.
--- NOTE | 2018-11-18 12:40 | NUR ---
Solu Cortef 100 mg given IV as ordered now.
--- NOTE | 2018-11-18 12:40 | NUR ---
Levophed titrated to 0.7 mcg/kg/min
[2018-11-18] MEDS ORDERED: EPINEPHrine INJECTION 1 MG/ML AMP ONE ×2 (12:42→13:00)
[2018-11-18] MEDS ORDERED: NS (IVPB) 100 ML ONE (12:43)
[2018-11-18] MEDS ORDERED: VANCOMYCIN 1000 MG/VIAL ONE (12:43)
[2018-11-18] MEDS ORDERED: NS IV 500 ML 500 ML ONE (12:43)
--- NOTE | 2018-11-18 12:43 | NUR ---
Heparin 5000 unit bolus IV given per verbal order.
--- NOTE | 2018-11-18 12:44 | NUR ---
NS 1st liter from EMS ended and 2nd Liter began now wide open
--- NOTE | 2018-11-18 12:44 | NUR ---
Heparin drip is ordered to began at 1000 units/hr = 20 ml/hr and began now.
[2018-11-18] MEDS: EPINEPHrine 1 MG INJECTION 2 MG in NS (IVPB) 248 ML IV SCH ×2 (12:50→13:00)
--- NOTE | 2018-11-18 12:50 | NUR ---
EPINEPHRINE drip began as per verbal order Dr Ng. Began at 0.1 mcg/min
[2018-11-18] MEDS: PIPERACILLIN/TAZO 4.5 GM VIAL (ZOSYN) IV ONE ×2 (12:58→13:33)
--- NOTE | 2018-11-18 12:58 | NUR ---
Zosyn 4.5 GM began as ordered now.
[2018-11-18 13:00] VITALS: BP 64/30
--- NOTE | 2018-11-18 13:00 | NUR ---
EMS departing with pt with all drips infusing and titration of Epinephrine to 0.3 mcg/min. Vancomycin 1 gm is prepared to have EMS administer in route at completion of Zosyn. Add'l drips are prepared as medications will end in route and not available on [facility]. All medications reviewed brfore transport and lines labeled on the infusions. The Kiwig[employer] compatibility chart was utilized in determining medication drips and sites for compatibilty. Report completed with [facility] and patient departed to [facility] at this time Code Red. See discharge summary. Continued ventilatory support with intubation placement verified. Pt has had no further meds as paralytics since pre-hospital. Pupils Left 2mm, R 1.5mm with a sluggish reaction.
[2018-11-18] MEDS ORDERED: NOREPINEPHRINE 4 MG in NS (IVPB) 250 ML IV SCH (13:45)
[2018-11-18 15:12] LABS: INR 1.6 (0.8-1.4); PROTHROMBIN TIME PATIENT 18.7 SEC (12.2-14.7)
== END 2018-11-18 13:00 | disposition short-term general hospital (02) ==
LOC: EDUNIT# 10:39 → ER FS 10:40
DX: I46.9 Cardiac arrest, cause unspecified (principal); R57.0 Cardiogenic shock; E87.2 Acidosis; D69.6 Thrombocytopenia, unspecified; R40.4 Transient alteration of awareness; E83.51 Hypocalcemia; R79.89 Other specified abnormal findings of blood chemistry; E11.22 Type 2 diabetes mellitus with diabetic chronic kidney disease; I12.9 Hypertensive chronic kidney disease with stage 1 through stage 4 chronic kidney disease, or unspecified chronic kidney disease; N18.9 Chronic kidney disease, unspecified; D64.9 Anemia, unspecified; I25.10 Atherosclerotic heart disease of native coronary artery without angina pectoris; I25.2 Old myocardial infarction; E78.00 Pure hypercholesterolemia, unspecified; K21.9 Gastro-esophageal reflux disease without esophagitis; Z80.3 Family history of malignant neoplasm of breast; Z82.49 Family history of ischemic heart disease and other diseases of the circulatory system; Z79.82 Long term (current) use of aspirin; Z79.4 Long term (current) use of insulin; Z95.1 Presence of aortocoronary bypass graft; Z99.11 Dependence on respirator [ventilator] status
CPT/HCPCS: 36415; 51702; 71045; 80048; 81000; 83605; 83880; 84484; 85027; 85610; 85730; 87040; 87077; 87088; 87186; 99291; 99292